=== PATIENT | female | born 1940 | race African-American/Black ===

== ENCOUNTER → 2016-12-11 | Outpatient (CLI) | payer MEDICARE | END | disposition home or self-care (01) | LOC: US 07:26 | PROVIDERS: ATTEND Internal Medicine Gastroenterology | DX: K76.0 Fatty (change of) liver, not elsewhere classified (principal); K74.60 Unspecified cirrhosis of liver; K82.9 Disease of gallbladder, unspecified; K83.8 Other specified diseases of biliary tract; K76.6 Portal hypertension; R16.2 Hepatomegaly with splenomegaly, not elsewhere classified | CPT/HCPCS: 76700 ==

== ENCOUNTER 2017-02-11 05:25 | Inpatient (IN) | payer MEDICARE ==
[~2017-02-11] VITALS: Ht 165.1 cm; Wt 68.0 kg
[2017-02-11] MEDS ORDERED: PANTOPRAZOLE SODIUM 40 MG/VIAL IV STA (06:19)
[2017-02-11] MEDS ORDERED: SODIUM CHLORIDE 0.9% 500 ML IV ONE (06:19)
[2017-02-11 06:43] LABS: CARBON DIOXIDE 29 mEq/L (21-32); CHLORIDE 106 mEq/L (98-107); TROPONIN I < 0.02 ng/mL (0.00-0.04)
[2017-02-11 07:15] LABS: BASOPHILS % 0.3 % (0.0-2.0); EOSINOPHILS % 0.1 % (0.0-5.0); HEMATOCRIT. 36.4 % (36.0-48.0); HEMOGLOBIN. 12.5 g/dL (12.0-16.0); LYMPHOCYTES % 13.9 % (20.0-50.0); MEAN CORPUSCULAR HEMOGLOBIN 32.4 pg (28.0-32.0); MEAN CORPUSCULAR VOLUME 94.1 fL (81.0-99.0); MEAN PLATELET VOLUME 8.5 fl (7.4-10.4); MONOCYTES % 7.6 % (2.0-8.0); NEUTROPHILS % 78.1 % (40.0-76.0); PLATELET 167 x1000/uL (130-400); RED BLOOD CELL COUNT 3.87 mill/uL (4.2-5.4); RED CELL DISTRIBUTION WIDTH 15.8 % (11.6-14.6)
[2017-02-11 07:18] LABS: INR 1.1; PARTIAL THROMBOPLASTIN TIME 26.6 sec (24.0-34.0); PROTHROMBIN TIME 11.7 sec
[2017-02-11 09:15] VITALS: BP 150/64
[2017-02-11] MEDS ORDERED: HYDRALAZINE 20MG/ML VIAL IV PRN (10:15)
[2017-02-11] MEDS ORDERED: CLONIDINE 0.1MG TABLET PO PRN (10:15)
[2017-02-11 10:53] VITALS: BP 150/64
[2017-02-11] MEDS ORDERED: AZULFIDINE (11:28)
[2017-02-11] MEDS ORDERED: METO50TA5 PO (11:28)
[2017-02-11] MEDS ORDERED: TRIA1TAB5 PO (11:28)
[2017-02-11 12:00] VITALS: BP 174/78
[2017-02-11] MEDS: AMLODIPINE 2.5MG TABLET PO SCH ×2 (12:34→21:57)
[2017-02-11 15:30] LABS: HEMATOCRIT 33.1 % (36.0-48.0); HEMOGLOBIN 11.1 g/dL (12.0-16.0)
[2017-02-11 16:00] VITALS: BP 133/65
[2017-02-11 20:00] VITALS: BP 140/70
[2017-02-11] MEDS: METOPROLOL TARTRATE 25MG TABLET PO SCH (21:56)
[2017-02-12 00:20] VITALS: BP 154/84
[2017-02-12 04:00] VITALS: BP 165/85
[2017-02-12 06:23] LABS: HEMATOCRIT. 33.5 % (36.0-48.0); HEMOGLOBIN. 11.3 g/dL (12.0-16.0); MEAN CORPUSCULAR HEMOGLOBIN 31.6 pg (28.0-32.0); MEAN CORPUSCULAR VOLUME 93.7 fL (81.0-99.0); MEAN PLATELET VOLUME 8.3 fl (7.4-10.4); PLATELET 118 x1000/uL (130-400); RED BLOOD CELL COUNT 3.57 mill/uL (4.2-5.4); RED CELL DISTRIBUTION WIDTH 15.2 % (11.6-14.6)
[2017-02-12 06:57] LABS: CHLORIDE 108 mEq/L (98-107)
[2017-02-12 07:01] LABS: CARBON DIOXIDE 28 mEq/L (21-32)
[2017-02-12 08:00] VITALS: BP 154/69
[2017-02-12] MEDS: AMLODIPINE 2.5MG TABLET PO SCH ×2 (08:57→22:32)
[2017-02-12] MEDS: METOPROLOL TARTRATE 25MG TABLET PO SCH ×2 (08:57→22:31)
[2017-02-12] MEDS ORDERED: MAGNESIUM 2 G PREMIX 50 ML IV SCH (11:00)
[2017-02-12 12:00] VITALS: BP 131/61
[2017-02-12 16:00] VITALS: BP 153/73
[2017-02-12 16:26] LABS: PLATELET ESTIMATE DECREASED
[2017-02-12] MEDS ORDERED: SORBITOL 70% SOLN 30ML PO SCH ×2 (18:00→22:00)
[2017-02-12 20:00] VITALS: BP 149/67
[2017-02-12] MEDS ORDERED: DEXT 5%/0.45% NACL 1000ML 1,000 ML IV ONE (22:21)
[2017-02-12] MEDS ORDERED: METOCLOPRAMIDE HCL 10MG/2ML VIAL IV NR (22:22)
[2017-02-12] MEDS ORDERED: POTASSIUM CHLORIDE 20MEQ/PACKET PO NR (22:23)
[2017-02-12] MEDS: PANTOPRAZOLE SODIUM 40 MG/VIAL IV SCH (22:31)
[2017-02-12] MEDS: DEXT 5%/0.45% NACL KCL 20MEQ/L 1,000 ML IV SCH (23:32)
[2017-02-13] VITALS: BP 143/62
[2017-02-13] MEDS ORDERED: METOCLOPRAMIDE HCL 10MG/2ML VIAL IV ONE (02:00)
[2017-02-13 04:00] VITALS: BP 139/68
[2017-02-13 04:18] LABS: BASOPHILS % 1.2 % (0.0-2.0); EOSINOPHILS % 0.4 % (0.0-5.0); HEMATOCRIT. 37.8 % (36.0-48.0); HEMOGLOBIN. 12.9 g/dL (12.0-16.0); LYMPHOCYTES % 9.6 % (20.0-50.0); MEAN CORPUSCULAR HEMOGLOBIN 32.2 pg (28.0-32.0); MEAN CORPUSCULAR VOLUME 94.1 fL (81.0-99.0); MEAN PLATELET VOLUME 8.7 fl (7.4-10.4); MONOCYTES % 11.8 % (2.0-8.0); PLATELET 140 x1000/uL (130-400); RED BLOOD CELL COUNT 4.02 mill/uL (4.2-5.4); RED CELL DISTRIBUTION WIDTH 15.6 % (11.6-14.6)
[2017-02-13 04:22] LABS: INR 1.1; PARTIAL THROMBOPLASTIN TIME 25.8 sec (24.0-34.0)
[2017-02-13 04:36] LABS: CARBON DIOXIDE 29 mEq/L (21-32); CHLORIDE 115 mEq/L (98-107)
[2017-02-13 08:00] VITALS: BP 131/71
[2017-02-13] MEDS: METOPROLOL TARTRATE 25MG TABLET PO SCH ×2 (09:00→20:35)
[2017-02-13] MEDS: AMLODIPINE 2.5MG TABLET PO SCH ×2 (09:00→20:36)
[2017-02-13] MEDS: PANTOPRAZOLE SODIUM 40 MG/VIAL IV SCH ×2 (09:47→20:35)
[2017-02-13] MEDS: DEXT 5%/0.45% NACL KCL 20MEQ/L 1,000 ML IV SCH (10:27)
[2017-02-13 12:00] VITALS: BP 152/61
[2017-02-13] MEDS ORDERED: SIMETHICONE 40 MG/0.6 ML 30ML ONE (12:51)
[2017-02-13] MEDS ORDERED: FENTANYL CITRATE/PF 50MCG/ML 2ML VIAL ONE (12:51)
[2017-02-13] MEDS ORDERED: MIDAZOLAM HCL 5 MG/5 ML VIAL ONE (12:52)
[2017-02-13] MEDS ORDERED: MIDAZOLAM HCL 5 MG/5 ML VIAL IV ONE (12:59)
[2017-02-13] MEDS ORDERED: FENTANYL CITRATE/PF 50MCG/ML 2ML VIAL IV ONE (13:01)
[2017-02-13] MEDS ORDERED: SODIUM CHLORIDE 0.9% 10ML VIAL ONE (13:35)
[2017-02-13 16:00] VITALS: BP 123/66
[2017-02-13 20:00] VITALS: BP 138/63
[2017-02-14] VITALS: BP 134/91
[2017-02-14] MEDS: DEXT 5%/0.45% NACL KCL 20MEQ/L 1,000 ML IV SCH ×2 (00:39→11:25)
[2017-02-14 04:00] VITALS: BP 143/61
[2017-02-14 06:27] LABS: BASOPHILS % 0.5 % (0.0-2.0); HEMATOCRIT. 33.5 % (36.0-48.0); HEMOGLOBIN. 11.5 g/dL (12.0-16.0); LYMPHOCYTES % 16.7 % (20.0-50.0); MEAN CORPUSCULAR HEMOGLOBIN 32.4 pg (28.0-32.0); MEAN CORPUSCULAR VOLUME 94.8 fL (81.0-99.0); MEAN PLATELET VOLUME 8.7 fl (7.4-10.4); MONOCYTES % 8.7 % (2.0-8.0); NEUTROPHILS % 72.1 % (40.0-76.0); RED BLOOD CELL COUNT 3.54 mill/uL (4.2-5.4); RED CELL DISTRIBUTION WIDTH 15.7 % (11.6-14.6)
[2017-02-14 06:37] LABS: CARBON DIOXIDE 27 mEq/L (21-32); CHLORIDE 110 mEq/L (98-107)
[2017-02-14 06:38] LABS: PLATELET 106 x1000/uL (130-400)
[2017-02-14 08:00] VITALS: BP 143/67
[2017-02-14] MEDS: PANTOPRAZOLE SODIUM 40 MG/VIAL IV SCH (09:53)
[2017-02-14] MEDS: METOPROLOL TARTRATE 25MG TABLET PO SCH (09:54)
[2017-02-14] MEDS: AMLODIPINE 2.5MG TABLET PO SCH (09:54)
[2017-02-14] MEDS ORDERED: LORAZEPAM 2MG/ML CPJ IV SCH (11:15)
[2017-02-14 12:00] VITALS: BP 131/62
[2017-02-14] MEDS ORDERED: GADOBENATE DIMEGLUMINE 529 MG/ML 10ML IV ONE (14:01)
[2017-02-14 16:00] VITALS: BP 138/71
[2017-02-14 19:50] VITALS: BP 130/64
== END 2017-02-14 19:59 | disposition home or self-care (01) | DRG 378 ==
LOC: ER 05:25 → 5WST 08:00 → EDBEDREQTM 08:04 → EDBEDREQSVC 08:04 → EDBEDREQ 08:04 → ENRESERV 08:26
PROVIDERS: ADMIT Specialist; ATTEND Specialist
PROC: 0DJD8ZZ Inspection of Lower Intestinal Tract, Via Natural or Artificial Opening Endoscopic (ICD-10-PCS; 2017-02-13)
PROC: 0DB68ZX Excision of Stomach, Via Natural or Artificial Opening Endoscopic, Diagnostic (ICD-10-PCS; principal; 2017-02-13 11:00)
DX: K62.5 Hemorrhage of anus and rectum (principal); I47.1 Supraventricular tachycardia; J98.11 Atelectasis; K50.90 Crohn's disease, unspecified, without complications; I85.00 Esophageal varices without bleeding; K92.2 Gastrointestinal hemorrhage, unspecified; D63.8 Anemia in other chronic diseases classified elsewhere; E83.42 Hypomagnesemia; I11.0 Hypertensive heart disease with heart failure; I50.9 Heart failure, unspecified; I34.0 Nonrheumatic mitral (valve) insufficiency; I87.2 Venous insufficiency (chronic) (peripheral); K29.70 Gastritis, unspecified, without bleeding; R26.81 Unsteadiness on feet; R16.2 Hepatomegaly with splenomegaly, not elsewhere classified; D49.89 Neoplasm of unspecified behavior of other specified sites; K31.89 Other diseases of stomach and duodenum; K44.9 Diaphragmatic hernia without obstruction or gangrene; K76.0 Fatty (change of) liver, not elsewhere classified; Z85.828 Personal history of other malignant neoplasm of skin
CPT/HCPCS: 36415; 71010; 72157; 80048; 80053; 83690; 83735; 83880; 84443; 84484; 85014; 85018; 85025; 85610; 85730; 86850; 86900; 88305; 88312; 88313; 93005; 96365; 96366; 97162; 97530; 99285; A4216; A6261; A9577; C9113; J2060; J2250; J2765; J3010; J3475; J7040; J7050

== ENCOUNTER 2017-03-07 18:15 | Inpatient (IN) | payer MEDICARE ==
[~2017-03-07] VITALS: Ht 165.1 cm; Wt 67.6 kg
[~2017-03-07 18:15] MED LIST: AZAT50TA24 PO; AZULFIDINE PO; METO50TA5 PO; TRIA1TAB5 PO
[2017-03-07 18:30] VITALS: BP 160/70
[2017-03-07] MEDS ORDERED: HYDROCODONE/APAP 7.5/325MG 1 TAB TABLET PO PRN (19:45)
[2017-03-07] MEDS ORDERED: NALOXONE HCL 0.4 MG/ML 1ML VIAL IV PRN (19:45)
[2017-03-07] MEDS ORDERED: ACETAMINOPHEN 325MG TABLET PO PRN (19:45)
[2017-03-07] MEDS ORDERED: ACETAMINOPHEN 650MG SUPP PR PRN (19:45)
[2017-03-07] MEDS ORDERED: DIPHENHYDRAMINE 50MG/ML VIAL IV PRN (19:45)
[2017-03-07] MEDS ORDERED: BISACODYL 5MG TABLET PO PRN (19:45)
[2017-03-07] MEDS ORDERED: CLONIDINE 0.1MG TABLET PO PRN (19:45)
[2017-03-07] MEDS ORDERED: ONDANSETRON HCL 4MG/2ML VIAL IV PRN (19:45)
[2017-03-07] MEDS ORDERED: IPRATROPIUM/ALBUTEROL 0.5-3(2.5)MG/3ML NEB HHN PRN (19:45)
[2017-03-07 20:00] VITALS: BP 144/70
[2017-03-07 20:30] VITALS: BP 144/70
[2017-03-07] MEDS: METOPROLOL TARTRATE 50MG TABLET PO SCH (21:00)
[2017-03-07] MEDS: LEVOFLOXACIN 250MG TABLET PO SCH (22:54)
[2017-03-07] MEDS: DEXAMETHASONE 4MG/ML 1ML VIAL IV SCH (23:09)
[2017-03-08] MEDS: DEXAMETHASONE 4MG/ML 1ML VIAL IV SCH ×3 (05:09→17:12)
[2017-03-08 08:00] VITALS: BP 153/83
[2017-03-08] MEDS: LEVOFLOXACIN 250MG TABLET PO SCH (08:23)
[2017-03-08] MEDS: DOCUSATE SODIUM 250MG CAPSULE PO SCH (08:24)
[2017-03-08] MEDS: FAMOTIDINE 20MG/2ML VIAL IV SCH (08:24)
[2017-03-08] MEDS: METOPROLOL TARTRATE 50MG TABLET PO SCH ×2 (08:24→21:27)
[2017-03-08 10:48] LABS: HEMATOCRIT. 36.9 % (36.0-48.0); HEMOGLOBIN. 12.4 g/dL (12.0-16.0); MEAN CORPUSCULAR HEMOGLOBIN 31.2 pg (28.0-32.0); MEAN CORPUSCULAR VOLUME 93.1 fL (81.0-99.0); MEAN PLATELET VOLUME 8.2 fl (7.4-10.4); PLATELET 159 x1000/uL (130-400); RED BLOOD CELL COUNT 3.96 mill/uL (4.2-5.4); RED CELL DISTRIBUTION WIDTH 16.2 % (11.6-14.6)
[2017-03-08 11:20] LABS: CARBON DIOXIDE 27 mEq/L (21-32); CHLORIDE 103 mEq/L (98-107)
[2017-03-08 11:30] LABS: PLATELET ESTIMATE NORMAL
[2017-03-08 20:00] VITALS: BP 187/79
[2017-03-09] MEDS: DEXAMETHASONE 4MG/ML 1ML VIAL IV SCH ×3 (06:51→11:49)
[2017-03-09 08:00] VITALS: BP 134/64
[2017-03-09 09:10] VITALS: BP 140/86
[2017-03-09] MEDS: LEVOFLOXACIN 250MG TABLET PO SCH (09:13)
[2017-03-09] MEDS: FAMOTIDINE 20MG/2ML VIAL IV SCH (09:18)
[2017-03-09] MEDS: METOPROLOL TARTRATE 50MG TABLET PO SCH ×2 (09:18→21:06)
[2017-03-09] MEDS: DOCUSATE SODIUM 250MG CAPSULE PO SCH (09:18)
[2017-03-09] MEDS: FAMOTIDINE 20MG TABLET PO SCH (17:00)
[2017-03-09 20:00] VITALS: BP 141/90
[2017-03-09] MEDS ORDERED: FAMOTIDINE 20MG TABLET PO SCH (21:00)
[2017-03-09] MEDS: DEXAMETHASONE 4MG TABLET PO SCH (21:05)
[2017-03-10 08:00] VITALS: BP 128/87
[2017-03-10] MEDS: DOCUSATE SODIUM 250MG CAPSULE PO SCH (08:46)
[2017-03-10] MEDS: LEVOFLOXACIN 250MG TABLET PO SCH (08:46)
[2017-03-10] MEDS: METOPROLOL TARTRATE 50MG TABLET PO SCH (08:47)
[2017-03-10] MEDS: FAMOTIDINE 20MG TABLET PO SCH (08:47)
[2017-03-10] MEDS: DEXAMETHASONE 4MG TABLET PO SCH (08:47)
[2017-03-10 09:54] LABS: HEMATOCRIT. 38.1 % (36.0-48.0); HEMOGLOBIN. 12.8 g/dL (12.0-16.0); MEAN CORPUSCULAR VOLUME 92.3 fL (81.0-99.0); MEAN PLATELET VOLUME 8.5 fl (7.4-10.4); PLATELET 204 x1000/uL (130-400); RED BLOOD CELL COUNT 4.13 mill/uL (4.2-5.4); RED CELL DISTRIBUTION WIDTH 15.6 % (11.6-14.6)
[2017-03-10 09:59] LABS: INR 1.3; PROTHROMBIN TIME 13.6 sec
[2017-03-10 10:04] LABS: CARBON DIOXIDE 26 mEq/L (21-32); CHLORIDE 104 mEq/L (98-107)
[2017-03-10 10:41] LABS: PLATELET ESTIMATE NORMAL
[2017-03-10 11:01] LABS: BG BASE EXCESS 3.4 mmol/L (-2.0-2.0); BG CARBOXYHEMOGLOBIN 0.9 % (0.5-1.5); BG DEOXYHEMOGLOBIN 4.3 % (0.0-5.0); BG FRACTION INSPIRED OXYGEN 21; BG HCO3 ACT 25.2 mmol/L (22.0-26.0); BG METHEMOGLOBIN 0.3 % (0.0-1.5); BG OXYGEN SATURATION 95.6 % (92.0-98.5); BG OXYHEMOGLOBIN 94.5 % (94.0-97.0); BG PCO2 29.6 mmHg (35.0-45.0); BG PH 7.548 (7.350-7.450); BG PO2 81.5 mmHg (75.0-100.0); BG SAMPLE SITE RIGHT BRACHIAL; BG TOTAL HEMOGLOBIN 12.4 g/dL (12.0-18.0); BG VENT MODE ROOM AIR
[2017-03-10] MEDS ORDERED: BLOOD SUGAR DIAGNOSTIC STRIP TEST SCH ×2 (11:15)
[2017-03-11 07:29] LABS: BG BASE EXCESS 2.7 mmol/L (-2.0-2.0); BG CARBOXYHEMOGLOBIN 1.2 % (0.5-1.5); BG DEOXYHEMOGLOBIN 4.7 % (0.0-5.0); BG HCO3 ACT 24.3 mmol/L (22.0-26.0); BG METHEMOGLOBIN 0.3 % (0.0-1.5); BG OXYGEN SATURATION 95.2 % (92.0-98.5); BG OXYHEMOGLOBIN 93.8 % (94.0-97.0); BG PCO2 28.8 mmHg (35.0-45.0); BG PH 7.544 (7.350-7.450); BG SAMPLE SITE RIGHT BRACHIAL; BG TOTAL HEMOGLOBIN 12.9 g/dL (12.0-18.0); BG VENT MODE ROOM AIR
[2017-03-12 08:49] LABS: BG BASE EXCESS 3.4 mmol/L (-2.0-2.0); BG CARBOXYHEMOGLOBIN 1.2 % (0.5-1.5); BG DEOXYHEMOGLOBIN 4.3 % (0.0-5.0); BG FRACTION INSPIRED OXYGEN 21; BG HCO3 ACT 24.4 mmol/L (22.0-26.0); BG METHEMOGLOBIN 0.3 % (0.0-1.5); BG OXYGEN SATURATION 95.6 % (92.0-98.5); BG OXYHEMOGLOBIN 94.2 % (94.0-97.0); BG PCO2 26.8 mmHg (35.0-45.0); BG PH 7.577 (7.350-7.450); BG SAMPLE SITE LEFT RADIAL; BG TOTAL HEMOGLOBIN 12.6 g/dL (12.0-18.0); BG VENT MODE ROOM AIR
== END 2017-03-10 09:40 | disposition short-term general hospital (02) | DRG 542 ==
PROVIDERS: ADMIT Psychiatry & Neurology Neurology; ATTEND Hospitalist
DX: C41.2 Malignant neoplasm of vertebral column (principal); G93.40 Encephalopathy, unspecified; I63.9 Cerebral infarction, unspecified; J18.9 Pneumonia, unspecified organism; G95.89 Other specified diseases of spinal cord; I48.91 Unspecified atrial fibrillation; I11.9 Hypertensive heart disease without heart failure; G82.20 Paraplegia, unspecified; K50.90 Crohn's disease, unspecified, without complications; N39.0 Urinary tract infection, site not specified; N32.81 Overactive bladder; I89.0 Lymphedema, not elsewhere classified; I87.2 Venous insufficiency (chronic) (peripheral); I34.0 Nonrheumatic mitral (valve) insufficiency; R26.89 Other abnormalities of gait and mobility; Z87.891 Personal history of nicotine dependence; Z87.440 Personal history of urinary (tract) infections; Z85.828 Personal history of other malignant neoplasm of skin
CPT/HCPCS: 36415; 36600; 70450; 70551; 80048; 82375; 82805; 82962; 85025; 85384; 85610; 93005; 93970; 97116; 97163; 97167; 97530; 97535; J1100; J3490; J8540

== ENCOUNTER 2017-03-13 20:00 | Inpatient (IN) | payer MEDICARE ==
[~2017-03-13] VITALS: Ht 165.1 cm; Wt 67.6 kg
[2017-03-13 20:45] VITALS: BP 134/62
[2017-03-13] MEDS ORDERED: ACETAMINOPHEN 325MG TABLET PO PRN (21:15)
[2017-03-13] MEDS ORDERED: IPRATROPIUM/ALBUTEROL 0.5-3(2.5)MG/3ML NEB HHN PRN (21:15)
[2017-03-13] MEDS: METOPROLOL TARTRATE 25MG TABLET PO SCH (21:58)
[2017-03-13] MEDS ORDERED: DILTIAZEM HCL 90MG TABLET PO SCH (22:00)
[2017-03-13] MEDS: TAMSULOSIN HCL 0.4MG SR CAPSULE PO SCH (22:13)
[2017-03-13] MEDS: ATORVASTATIN CALCIUM 10MG TABLET PO SCH (22:14)
[2017-03-13] MEDS: DILTIAZEM HCL 60MG TABLET PO SCH ×2 (23:00→23:38)
[2017-03-14] MEDS: IPRATROPIUM/ALBUTEROL 0.5-3(2.5)MG/3ML NEB HHN SCH ×4 (02:20→21:35)
[2017-03-14] MEDS: DILTIAZEM HCL 60MG TABLET PO SCH ×3 (05:53→22:17)
[2017-03-14 08:00] VITALS: BP 96/49
[2017-03-14] MEDS: METOPROLOL TARTRATE 25MG TABLET PO SCH ×2 (08:04→21:00)
[2017-03-14] MEDS ORDERED: ASPIRIN 81MG TABLET PO SCH (09:00)
[2017-03-14] MEDS ORDERED: CLOPIDOGREL 75MG TABLET PO SCH (09:00)
[2017-03-14] MEDS ORDERED: LEVOFLOXACIN 250MG TABLET PO SCH (11:00)
[2017-03-14 15:59] LABS: INR 1.3; PROTHROMBIN TIME 14.1 sec (9.4-11.6)
[2017-03-14] MEDS ORDERED: WARFARIN SODIUM 5MG TABLET PO SCH (18:00)
[2017-03-14 20:00] VITALS: BP 117/60
[2017-03-14] MEDS: ATORVASTATIN CALCIUM 10MG TABLET PO SCH (22:13)
[2017-03-14] MEDS: TAMSULOSIN HCL 0.4MG SR CAPSULE PO SCH (22:15)
[2017-03-15] MEDS: IPRATROPIUM/ALBUTEROL 0.5-3(2.5)MG/3ML NEB HHN SCH (02:15)
[2017-03-15 06:05] LABS: INR 1.3; PROTHROMBIN TIME 13.4 sec (9.4-11.6)
== END 2017-03-15 08:10 | disposition short-term general hospital (02) | DRG 65 ==
PROVIDERS: ADMIT Psychiatry & Neurology Neurology; ATTEND Hospitalist
DX: I63.412 Cerebral infarction due to embolism of left middle cerebral artery (principal); N39.0 Urinary tract infection, site not specified; K50.90 Crohn's disease, unspecified, without complications; I48.91 Unspecified atrial fibrillation; G95.9 Disease of spinal cord, unspecified; I47.1 Supraventricular tachycardia; I10 Essential (primary) hypertension; D49.2 Neoplasm of unspecified behavior of bone, soft tissue, and skin; N31.9 Neuromuscular dysfunction of bladder, unspecified; R33.9 Retention of urine, unspecified; E78.5 Hyperlipidemia, unspecified; I34.0 Nonrheumatic mitral (valve) insufficiency; I89.0 Lymphedema, not elsewhere classified; I87.2 Venous insufficiency (chronic) (peripheral); R26.0 Ataxic gait; Z87.891 Personal history of nicotine dependence; Z79.899 Other long term (current) drug therapy
CPT/HCPCS: 36415; 85610; 92523; 93005; 94640; 97116; 97163; 97167; 97530; 97535; J7620

== ENCOUNTER → 2019-03-30 | Outpatient (CLI) | payer MEDICARE ==
[~2019-03-30] MED LIST changes: +ASCO500C6 PO; +BISA-81 PO; +CLON0.1T PO; +DEXTL PO; +GENT30OI2 TP; +HYDR-4001 PO; +LACT10SO6 PO; +METO-539 PO; -METO50TA5 PO; +NA P230E RC; +POLY15DR31 EACHEYE; +SOTA80TA PO
== END | disposition home or self-care (01) ==
LOC: US 08:20
PROVIDERS: ATTEND Internal Medicine Gastroenterology
DX: K80.20 Calculus of gallbladder without cholecystitis without obstruction (principal); K74.60 Unspecified cirrhosis of liver; R16.1 Splenomegaly, not elsewhere classified; J90 Pleural effusion, not elsewhere classified
CPT/HCPCS: 76700

== ENCOUNTER 2021-08-28 16:03 | Inpatient (IN) | payer MEDICARE ==
[~2021-08-28] VITALS: Ht 162.6 cm; Wt 69.9 kg
[2021-08-28] MEDS ORDERED: SODIUM CHLORIDE 0.9% 1000ML BAG (SEPSIS BOLUS) IV ONE (16:30)
[2021-08-28 17:01] LABS: BG BASE EXCESS 3.2 mmol/L (-2.0-2.0); BG DEOXYHEMOGLOBIN 5.3 % (0.0-5.0); BG HCO3 ACT 26.3 mmol/L (22.0-26.0); BG METHEMOGLOBIN 0.2 % (0.0-1.5); BG OXYGEN SATURATION 94.6 % (92.0-98.5); BG OXYHEMOGLOBIN 93.5 % (94.0-97.0); BG PCO2 35.1 mmHg (35.0-45.0); BG PH 7.493 (7.350-7.450); BG PO2 86.2 mmHg (75.0-100.0); BG SAMPLE SITE LEFT BRACHIAL; BG TOTAL HEMOGLOBIN 11.6 g/dL (12.0-18.0); BG VENT MODE ROOM AIR
[2021-08-28] MEDS ORDERED: POTASSIUM CL ER (17:03)
[2021-08-28] MEDS ORDERED: FERROUS SULFATE (17:03)
[2021-08-28] MEDS ORDERED: PREDNISONE (17:03)
[2021-08-28] MEDS ORDERED: D3 (17:03)
[2021-08-28] MEDS ORDERED: APIX2.5T PO (17:03)
[2021-08-28] MEDS ORDERED: SULF500T8 PO (17:03)
[2021-08-28] MEDS ORDERED: FURO40TA5 PO (17:03)
[2021-08-28] MEDS ORDERED: DIPH1TAB24 PO (17:03)
[2021-08-28] MEDS ORDERED: PRESER VISION (17:03)
[2021-08-28 17:13] LABS: BASOPHILS % 0.8 % (0.0-2.0); EOSINOPHILS % 0.2 % (0.0-5.0); HEMATOCRIT. 38.5 % (36.0-48.0); HEMOGLOBIN. 12.2 g/dL (12.0-16.0); LYMPHOCYTES % 16.8 % (20.0-50.0); MEAN CORPUSCULAR VOLUME 94.2 fL (81.0-99.0); MEAN PLATELET VOLUME 9.6 fl (7.4-10.4); MONOCYTES % 10.3 % (2.0-8.0); NEUTROPHILS % 71.9 % (40.0-76.0); PLATELET 212 x1000/uL (130-400); RED BLOOD CELL COUNT 4.08 mill/uL (4.2-5.4)
[2021-08-28 17:15] LABS: CHLORIDE 111 mEq/L (98-107)
[2021-08-28 17:18] LABS: ETHANOL BLOOD < 10 mg/dL
[2021-08-28 17:23] LABS: CREATINE KINASE 79 IU/L (26-192)
[2021-08-28] MEDS ORDERED: CEFAZOLIN 1000MG PREMIX 50 ML IV NR (18:30)
[2021-08-28] MEDS ORDERED: METRONIDAZOLE 500 MG PREMIX 100 ML IV NR (18:30)
[2021-08-28 20:05] LABS: CLARITY URINE TURBID (CLEAR); COLOR URINE DARK YELLOW (YELLOW); KETONES URINE NEGATIVE (NEGATIVE); LEUKOCYTE ESTERASE URINE 3+ (NEGATIVE); NITRITE URINE NEGATIVE (NEGATIVE); OCCULT BLOOD URINE 1+ (NEGATIVE); PH URINE 8.5 (4.5-8.0); PROTEIN URINE 2+ (NEGATIVE); SPECIFIC GRAVITY URINE 1.017 (1.005-1.030)
[2021-08-28 20:24] LABS: *COCAINE SCREEN URINE NEGATIVE (NEGATIVE)
[2021-08-28 20:26] LABS: *BARBITURATES SCREEN URINE NEGATIVE (NEGATIVE); *BENZODIAZEPINES SCREEN URINE NEGATIVE (NEGATIVE); CANNABINOID URINE SCREEN NEGATIVE (NEGATIVE); METHADONE URINE SCREEN NEGATIVE (NEGATIVE); OPIATES URINE SCREEN NEGATIVE (NEGATIVE); PHENCYCLIDINE URINE SCREEN NEGATIVE (NEGATIVE)
[2021-08-28 20:28] LABS: *AMPHETAMINES SCREEN URINE NEGATIVE (NEGATIVE)
[2021-08-28] MEDS ORDERED: ACETAMINOPHEN 325MG TABLET PO PRN (21:00)
[2021-08-28] MEDS ORDERED: DIPHENHYDRAMINE 50MG/ML VIAL IV PRN (21:00)
[2021-08-28] MEDS ORDERED: ONDANSETRON HCL 4MG/2ML INJ IV PRN (21:00)
[2021-08-28] MEDS ORDERED: LEVOFLOXACIN 500MG PREMIX 100 ML IV SCH (21:30)
[2021-08-28] MEDS: DILTIAZEM HCL 30MG TABLET PO SCH (22:11)
[2021-08-28] MEDS: LACTULOSE 20G/30ML UDC PO SCH (22:13)
[2021-08-28] MEDS: SODIUM CHLORIDE 0.9% INJ 3ML FLUSH IVF SCH (22:13)
[2021-08-29] VITALS: BP 158/71
[2021-08-29] MEDS ORDERED: HYDRALAZINE 20MG/ML VIAL IV PRN (03:00)
[2021-08-29 04:00] VITALS: BP 175/73
[2021-08-29] MEDS: DILTIAZEM HCL 30MG TABLET PO SCH ×3 (05:01→21:14)
[2021-08-29] MEDS: LACTULOSE 20G/30ML UDC PO SCH ×3 (05:01→21:14)
[2021-08-29] MEDS: SODIUM CHLORIDE 0.9% INJ 3ML FLUSH IVF SCH ×3 (05:01→21:14)
[2021-08-29 08:19] LABS: EOSINOPHILS % 0.2 % (0.0-5.0); HEMATOCRIT. 34.1 % (36.0-48.0); HEMOGLOBIN. 11.3 g/dL (12.0-16.0); LYMPHOCYTES % 11.8 % (20.0-50.0); MEAN CORPUSCULAR HEMOGLOBIN 31.1 pg (28.0-32.0); MEAN CORPUSCULAR VOLUME 94.1 fL (81.0-99.0); MEAN PLATELET VOLUME 9.5 fl (7.4-10.4); MONOCYTES % 7.6 % (2.0-8.0); NEUTROPHILS % 79.4 % (40.0-76.0); PLATELET 165 x1000/uL (130-400); RED BLOOD CELL COUNT 3.63 mill/uL (4.2-5.4); RED CELL DISTRIBUTION WIDTH 18.4 % (11.6-14.6)
[2021-08-29 08:20] LABS: CHLORIDE 114 mEq/L (98-107)
[2021-08-29 08:30] VITALS: BP 156/74
[2021-08-29 12:00] VITALS: BP 171/76
[2021-08-29 16:00] VITALS: BP 154/87
[2021-08-29] MEDS ORDERED: POTASSIUM CHLORIDE 20MEQ TABLET SR PO NR (17:00)
[2021-08-29] MEDS ORDERED: METRONIDAZOLE 500 MG PREMIX 100 ML IV SCH (18:30)
[2021-08-29 20:00] VITALS: BP 136/86
[2021-08-29] MEDS: METRONIDAZOLE 500 MG PREMIX 100 ML IV SCH (21:14)
[2021-08-30] VITALS: BP 118/65
[2021-08-30] MEDS: ACETAMINOPHEN 325MG TABLET PO PRN ×2 (01:24→21:33)
[2021-08-30] MEDS: METRONIDAZOLE 500 MG PREMIX 100 ML IV SCH ×3 (01:24→18:16)
[2021-08-30 04:00] VITALS: BP 135/61
[2021-08-30] MEDS: DILTIAZEM HCL 30MG TABLET PO SCH ×3 (06:40→21:34)
[2021-08-30] MEDS: LACTULOSE 20G/30ML UDC PO SCH ×3 (06:40→21:33)
[2021-08-30] MEDS: SODIUM CHLORIDE 0.9% INJ 3ML FLUSH IVF SCH ×3 (06:40→21:34)
[2021-08-30 08:15] VITALS: BP 130/62
[2021-08-30 12:15] VITALS: BP 116/50
[2021-08-30 16:30] VITALS: BP 110/60
[2021-08-30 20:00] VITALS: BP 132/99
[2021-08-30] MEDS ORDERED: LEVOFLOXACIN 500MG PREMIX 100 ML IV SCH (22:00)
[2021-08-31] VITALS: BP 117/60
[2021-08-31] MEDS: METRONIDAZOLE 500 MG PREMIX 100 ML IV SCH ×3 (01:25→17:38)
[2021-08-31 04:00] VITALS: BP 137/63
[2021-08-31] MEDS: DILTIAZEM HCL 30MG TABLET PO SCH ×2 (06:16→13:08)
[2021-08-31] MEDS: LACTULOSE 20G/30ML UDC PO SCH (06:17)
[2021-08-31] MEDS: SODIUM CHLORIDE 0.9% INJ 3ML FLUSH IVF SCH ×2 (06:17→13:06)
[2021-08-31 08:00] VITALS: BP 132/71
[2021-08-31 09:33] LABS: BASOPHILS % 0.9 % (0.0-2.0); EOSINOPHILS % 0.2 % (0.0-5.0); HEMATOCRIT. 38.7 % (36.0-48.0); HEMOGLOBIN. 12.6 g/dL (12.0-16.0); LYMPHOCYTES % 14.8 % (20.0-50.0); MEAN CORPUSCULAR HEMOGLOBIN 30.5 pg (28.0-32.0); MEAN CORPUSCULAR VOLUME 93.9 fL (81.0-99.0); MEAN PLATELET VOLUME 9.7 fl (7.4-10.4); MONOCYTES % 11.1 % (2.0-8.0); PLATELET 146 x1000/uL (130-400); RED BLOOD CELL COUNT 4.12 mill/uL (4.2-5.4)
[2021-08-31 09:39] LABS: CHLORIDE 116 mEq/L (98-107)
[2021-08-31] MEDS ORDERED: POTASSIUM CHLORIDE 20MEQ TABLET SR PO SCH (10:30)
[2021-08-31 12:00] VITALS: BP 133/67
[2021-08-31] MEDS ORDERED: METHYLPREDNISOLONE SOD SUCC 40 MG/ML VIAL IV SCH (12:33)
[2021-08-31] MEDS: RIFAXIMIN 550 MG TABLET PO SCH ×2 (13:06→17:37)
[2021-08-31 16:00] VITALS: BP 139/63
[2021-08-31] MEDS: MESALAMINE 400 MG CAPSULE.DR PO SCH ×2 (17:00→17:37)
[2021-08-31 18:00] VITALS: BP 139/63
[2021-09-01 04:07] LABS: OVA & PARASITE EXAM Final report (.)
[2021-09-02 15:09] LABS: ANTI-MYELOPEROXIDASE AB < 9.0 U/mL (0.0-9.0); ANTI-PROTEINASE 3 ABS < 3.5 U/mL (0.0-3.5)
[2021-09-04 04:07] LABS: OVA & PARASITE EXAM Final report (.)
[2021-09-05 13:11] LABS: ATYPICAL P-ANCA <1:20 titer (Neg:<1:20); CYTOPLASMIC C-ANCA <1:20 titer (Neg:<1:20); PERINUCLEAR P-ANCA <1:20 titer (Neg:<1:20)
== END 2021-08-31 18:51 | disposition home or self-care (01) | DRG 442 ==
LOC: ER 16:03 → 6WST 20:03 → EDBEDREQTM 20:42 → EDBEDREQ 20:42 → EDBEDREQSVC 20:42 → ENRESERV 21:56
PROVIDERS: ADMIT Internal Medicine; ATTEND Internal Medicine
DX: K72.90 Hepatic failure, unspecified without coma (principal); F05 Delirium due to known physiological condition; K50.10 Crohn's disease of large intestine without complications; N39.0 Urinary tract infection, site not specified; K74.60 Unspecified cirrhosis of liver; K52.89 Other specified noninfective gastroenteritis and colitis; I48.0 Paroxysmal atrial fibrillation; I25.10 Atherosclerotic heart disease of native coronary artery without angina pectoris; Z20.822 Contact with and (suspected) exposure to COVID-19; D64.9 Anemia, unspecified; I10 Essential (primary) hypertension; K59.00 Constipation, unspecified; Z86.73 Personal history of transient ischemic attack (TIA), and cerebral infarction without residual deficits; Z87.440 Personal history of urinary (tract) infections; Z82.49 Family history of ischemic heart disease and other diseases of the circulatory system
CPT/HCPCS: 36415; 36600; 71045; 74176; 76700; 80048; 80053; 80076; 80305; 80320; 81003; 82105; 82140; 82375; 82378; 82550; 82805; 82962; 83520; 83605; 83880; 84145; 84443; 84484; 85025; 85651; 86140; 86256; 86850; 86900; 87015; 87045; 87077; 87177; 87186; 87209; 87426; 87427; 87449; 87493; 89055; 93005; 93976; 99285; J0360; J0690; J1956; J2920; J3490; J7030; J7040; G0480

== ENCOUNTER 2022-01-24 08:26 | Inpatient (IN) | payer MEDICARE ==
[~2022-01-24] VITALS: Ht 165.1 cm; Wt 79.8 kg
[~2022-01-24 08:26] MED LIST changes: +APIX2.5T PO; -ASCO500C6 PO; -AZULFIDINE PO; -CLON0.1T PO; -DEXTL PO; +DIPH1TAB24 PO; +FURO40TA5 PO; -HYDR-4001 PO; -LACT10SO6 PO; -METO-539 PO; +SULF500T8 PO; -TRIA1TAB5 PO
[2022-01-24] MEDS ORDERED: ONDANSETRON HCL 4MG/2ML INJ IV STA (09:30)
[2022-01-24] MEDS ORDERED: MORPHINE SULFATE 4 MG/ML CPJ (NOT FOR IM USE) IV STA (09:30)
[2022-01-24 10:24] LABS: BASOPHILS % 0.5 % (0.0-2.0); EOSINOPHILS % 0.4 % (0.0-5.0); HEMATOCRIT. 30.9 % (36.0-48.0); HEMOGLOBIN. 9.7 g/dL (12.0-16.0); LYMPHOCYTES % 9.2 % (20.0-50.0); MEAN CORPUSCULAR HEMOGLOBIN 27.6 pg (28.0-32.0); MEAN CORPUSCULAR VOLUME 87.9 fL (81.0-99.0); MEAN PLATELET VOLUME 8.7 fl (7.4-10.4); MONOCYTES % 6.5 % (2.0-8.0); NEUTROPHILS % 83.4 % (40.0-76.0); PLATELET 168 x1000/uL (130-400); RED BLOOD CELL COUNT 3.52 mill/uL (4.2-5.4); RED CELL DISTRIBUTION WIDTH 21.9 % (11.6-14.6)
[2022-01-24 10:36] LABS: CHLORIDE 106 mEq/L (98-107)
[2022-01-24 10:40] LABS: INR 1.2; PROTHROMBIN TIME 12.5 sec (9.6-11.0)
[2022-01-24] MEDS ORDERED: POTASSIUM CHLORIDE 20MEQ TABLET SR PO NR (11:15)
[2022-01-24] MEDS ORDERED: NALOXONE HCL 0.4MG/ML VIAL IV PRN (13:30)
[2022-01-24] MEDS ORDERED: MORPHINE SULFATE 2 MG/ML CPJ (NOT FOR IM USE) IV PRN (13:30)
[2022-01-24] MEDS ORDERED: ACETAMINOPHEN 325MG TABLET PO PRN ×3 (14:30→20:45)
[2022-01-24 16:00] VITALS: BP 159/89
[2022-01-24] MEDS: SODIUM CHLORIDE 0.45% 1,000 ML IV SCH (17:58)
[2022-01-24] MEDS: SOTALOL HCL 80MG TABLET PO SCH ×2 (18:13→20:18)
[2022-01-24 20:00] VITALS: BP 159/60
[2022-01-24] MEDS ORDERED: ZOLPIDEM TARTRATE 5MG TABLET PO PRN (20:45)
[2022-01-24] MEDS ORDERED: ONDANSETRON HCL 4MG/2ML INJ IV PRN (20:45)
[2022-01-24] MEDS ORDERED: MAGNESIUM/ALUMINUM HYDROXIDE/SIMETHICONE 30ML UDC PO PRN (20:45)
[2022-01-24] MEDS ORDERED: CLONIDINE 0.1MG TABLET PO PRN (20:45)
[2022-01-24] MEDS: DEXT 5%/0.45% NACL 1000ML 1,000 ML IV SCH (21:14)
[2022-01-25] VITALS: BP 155/75
[2022-01-25] MEDS: SODIUM CHLORIDE 0.45% 1,000 ML IV SCH ×3 (01:35→22:24)
[2022-01-25 04:00] VITALS: BP 158/75
[2022-01-25 08:00] VITALS: BP 148/76
[2022-01-25 08:20] LABS: INR 1.2; PARTIAL THROMBOPLASTIN TIME 32.5 sec (23.4-31.0); PROTHROMBIN TIME 13.2 sec (9.6-11.0)
[2022-01-25 09:08] LABS: CHLORIDE 106 mEq/L (98-107)
[2022-01-25] MEDS ORDERED: ENOXAPARIN 40MG/0.4ML SYR SUBCUT NR (10:30)
[2022-01-25] MEDS: AMLODIPINE 5MG TABLET PO SCH ×2 (10:41→22:24)
[2022-01-25] MEDS: SOTALOL HCL 80MG TABLET PO SCH ×2 (10:41→22:24)
[2022-01-25] MEDS: MAGNESIUM OXIDE 400MG TABLET PO SCH (10:45)
[2022-01-25 12:00] VITALS: BP 152/71
[2022-01-25] MEDS ORDERED: KCL 20MEQ/100ML PREMIX 100 ML IV NR ×2 (12:00→21:00)
[2022-01-25] MEDS ORDERED: MAGNESIUM 2 G PREMIX 50 ML IV NR (12:00)
[2022-01-25 12:45] LABS: BASOPHILS % 0.7 % (0.0-2.0); EOSINOPHILS % 0.6 % (0.0-5.0); HEMATOCRIT. 28.3 % (36.0-48.0); HEMOGLOBIN. 8.6 g/dL (12.0-16.0); LYMPHOCYTES % 10.9 % (20.0-50.0); MEAN CORPUSCULAR HEMOGLOBIN 27.3 pg (28.0-32.0); MEAN CORPUSCULAR VOLUME 90.4 fL (81.0-99.0); MEAN PLATELET VOLUME 9.3 fl (7.4-10.4); NEUTROPHILS % 77.8 % (40.0-76.0); PLATELET 132 x1000/uL (130-400); RED BLOOD CELL COUNT 3.14 mill/uL (4.2-5.4); RED CELL DISTRIBUTION WIDTH 21.6 % (11.6-14.6)
[2022-01-25 16:00] VITALS: BP 150/75
[2022-01-25] MEDS ORDERED: P20 MT (16:42)
[2022-01-25] MEDS ORDERED: POTA-205 MT (16:42)
[2022-01-25] MEDS ORDERED: CHOL400D7 MT (16:42)
[2022-01-25] MEDS ORDERED: FERR-71 MT (16:42)
[2022-01-25] MEDS ORDERED: RIFA550T MT (16:42)
[2022-01-25] MEDS ORDERED: METO10TA8 MT (16:42)
[2022-01-25] MEDS: DEXT 5%/0.45% NACL 1000ML 1,000 ML IV SCH (16:45)
[2022-01-25] MEDS: NYSTATIN POWDER 15GM TOP SCH (17:00)
[2022-01-25 20:00] VITALS: BP 120/63
[2022-01-26] VITALS: BP 96/58
[2022-01-26 04:00] VITALS: BP 117/50
[2022-01-26] MEDS: NYSTATIN POWDER 15GM TOP SCH ×2 (05:23→17:00)
[2022-01-26 08:13] VITALS: BP 115/56
[2022-01-26] MEDS: DEXT 5%/0.45% NACL 1000ML 1,000 ML IV SCH ×2 (08:44→20:27)
[2022-01-26] MEDS: SOTALOL HCL 80MG TABLET PO SCH ×2 (08:44→20:26)
[2022-01-26] MEDS: MAGNESIUM OXIDE 400MG TABLET PO SCH (08:45)
[2022-01-26] MEDS: AMLODIPINE 5MG TABLET PO SCH ×2 (08:45→20:27)
[2022-01-26] MEDS ORDERED: POLYMYXIN B SULFATE 500000 UNITS/VIAL ONE (11:12)
[2022-01-26] MEDS ORDERED: LIDOCAINE HCL/EPINEPHRINE 1%-EPI 1:100,000 20 ML VIAL ONE (11:13)
[2022-01-26] MEDS ORDERED: BUPIVACAINE HCL/PF 0.5% (5MG/ML) 30ML ONE (11:13)
[2022-01-26] MEDS ORDERED: VANCOMYCIN HCL 1 GM/VIAL ONE (11:13)
[2022-01-26 11:42] LABS: CHLORIDE 104 mEq/L (98-107)
[2022-01-26 12:17] VITALS: BP 133/78
[2022-01-26 12:48] LABS: CLARITY URINE TURBID (CLEAR); COLOR URINE DARK YELLOW (YELLOW); KETONES URINE TRACE (NEGATIVE); LEUKOCYTE ESTERASE URINE TRACE (NEGATIVE); NITRITE URINE POSITIVE (NEGATIVE); OCCULT BLOOD URINE NEGATIVE (NEGATIVE); PH URINE 8.5 (4.5-8.0); PROTEIN URINE 1+ (NEGATIVE); SPECIFIC GRAVITY URINE 1.019 (1.005-1.030)
[2022-01-26] MEDS ORDERED: KCL 20MEQ/100ML PREMIX 100 ML IV NR ×2 (14:00→15:30)
[2022-01-26] MEDS ORDERED: LIDOCAINE HCL 1% 50ML VIAL (10MG/ML) ONE (14:40)
[2022-01-26] MEDS ORDERED: CEFAZOLIN SODIUM 1000MG/VIAL ONE (16:10)
[2022-01-26] MEDS ORDERED: DEXAMETHASONE 4MG/ML 1ML VIAL ONE (16:10)
[2022-01-26] MEDS ORDERED: EPHEDRINE SULFATE 50MG/ML VIAL ONE (16:10)
[2022-01-26] MEDS ORDERED: DIGOXIN 500MCG/2ML AMP IV NR (17:06)
[2022-01-26] MEDS ORDERED: METOPROLOL TARTRATE 5MG/5ML VIAL IV NR ×2 (17:15→17:30)
[2022-01-26] MEDS ORDERED: METOPROLOL TARTRATE 5MG/5ML VIAL IV ONE (17:16)
[2022-01-26] MEDS ORDERED: DIGOXIN 500MCG/2ML AMP IV SCH (18:00)
[2022-01-26] MEDS: CEFAZOLIN 2,000 MG in DEXT 5% WATER 100 ML IV SCH (18:09)
[2022-01-26 20:00] VITALS: BP 135/61
[2022-01-26 20:14] LABS: HEMATOCRIT. 30.9 % (36.0-48.0); HEMOGLOBIN. 9.7 g/dL (12.0-16.0); MEAN CORPUSCULAR HEMOGLOBIN 27.4 pg (28.0-32.0); MEAN CORPUSCULAR VOLUME 87.4 fL (81.0-99.0); MEAN PLATELET VOLUME 9.3 fl (7.4-10.4); PLATELET 161 x1000/uL (130-400); RED BLOOD CELL COUNT 3.54 mill/uL (4.2-5.4); RED CELL DISTRIBUTION WIDTH 20.8 % (11.6-14.6)
[2022-01-26 20:24] LABS: CHLORIDE 104 mEq/L (98-107)
[2022-01-26] MEDS: RIFAXIMIN 550 MG TABLET PO SCH (20:26)
[2022-01-26] MEDS: DILTIAZEM HCL 60MG TABLET PO SCH (20:27)
[2022-01-26 22:10] LABS: PLATELET ESTIMATE NORMAL
[2022-01-27] VITALS: BP 104/53
[2022-01-27] MEDS: CEFAZOLIN 2,000 MG in DEXT 5% WATER 100 ML IV SCH ×3 (01:09→16:44)
[2022-01-27 04:00] VITALS: BP 108/44
[2022-01-27 05:45] LABS: CHLORIDE 103 mEq/L (98-107)
[2022-01-27] MEDS: DILTIAZEM HCL 60MG TABLET PO SCH (06:00)
[2022-01-27 06:27] LABS: BASOPHILS % 0.1 % (0.0-2.0); HEMATOCRIT. 27.9 % (36.0-48.0); HEMOGLOBIN. 8.7 g/dL (12.0-16.0); LYMPHOCYTES % 8.8 % (20.0-50.0); MEAN CORPUSCULAR VOLUME 86.6 fL (81.0-99.0); MEAN PLATELET VOLUME 9.7 fl (7.4-10.4); MONOCYTES % 5.9 % (2.0-8.0); NEUTROPHILS % 85.2 % (40.0-76.0); PLATELET 170 x1000/uL (130-400); RED BLOOD CELL COUNT 3.22 mill/uL (4.2-5.4); RED CELL DISTRIBUTION WIDTH 21.3 % (11.6-14.6)
[2022-01-27 07:44] VITALS: BP_SYST 110; BP_DIAS 48; BP_DIAS 64
[2022-01-27] MEDS: SOTALOL HCL 80MG TABLET PO SCH ×2 (08:28→21:35)
[2022-01-27] MEDS: AMLODIPINE 5MG TABLET PO SCH (08:28)
[2022-01-27] MEDS: RIFAXIMIN 550 MG TABLET PO SCH ×2 (08:53→21:35)
[2022-01-27] MEDS: MAGNESIUM OXIDE 400MG TABLET PO SCH (08:53)
[2022-01-27] MEDS: DEXT 5%/0.45% NACL 1000ML 1,000 ML IV SCH ×2 (09:48→23:42)
[2022-01-27 11:57] VITALS: BP_SYST 112; BP_DIAS 56; BP_DIAS 69
[2022-01-27] MEDS: HYDROCODONE/ACETAMINOPHEN 5/325MG TABLET PO PRN (12:23)
[2022-01-27] MEDS: DILTIAZEM HCL 30MG TABLET PO SCH ×2 (12:23→18:14)
[2022-01-27 16:00] VITALS: BP 114/72
[2022-01-27] MEDS: APIXABAN 2.5 MG TABLET PO SCH (16:43)
[2022-01-27] MEDS: NYSTATIN POWDER 15GM TOP SCH (17:00)
[2022-01-27] MEDS: DIGOXIN 125MCG TABLET PO SCH (18:14)
[2022-01-27 20:00] VITALS: BP 115/52
[2022-01-28] VITALS: BP 124/54
[2022-01-28] MEDS: DILTIAZEM HCL 30MG TABLET PO SCH ×4 (00:28→19:51)
[2022-01-28] MEDS: CEFAZOLIN 2,000 MG in DEXT 5% WATER 100 ML IV SCH ×2 (01:23→10:09)
[2022-01-28 04:00] VITALS: BP 117/48
[2022-01-28] MEDS: NYSTATIN POWDER 15GM TOP SCH ×2 (05:50→19:52)
[2022-01-28 06:50] LABS: CHLORIDE 103 mEq/L (98-107)
[2022-01-28 07:24] LABS: BASOPHILS % 0.2 % (0.0-2.0); HEMATOCRIT. 28.6 % (36.0-48.0); HEMOGLOBIN. 9.1 g/dL (12.0-16.0); LYMPHOCYTES % 8.6 % (20.0-50.0); MEAN CORPUSCULAR HEMOGLOBIN 27.8 pg (28.0-32.0); MEAN CORPUSCULAR VOLUME 87.1 fL (81.0-99.0); MEAN PLATELET VOLUME 9.5 fl (7.4-10.4); MONOCYTES % 9.3 % (2.0-8.0); NEUTROPHILS % 81.9 % (40.0-76.0); PLATELET 176 x1000/uL (130-400); RED BLOOD CELL COUNT 3.28 mill/uL (4.2-5.4); RED CELL DISTRIBUTION WIDTH 21.1 % (11.6-14.6)
[2022-01-28 08:00] VITALS: BP 148/52
[2022-01-28] MEDS: RIFAXIMIN 550 MG TABLET PO SCH ×2 (10:09→22:18)
[2022-01-28] MEDS: APIXABAN 2.5 MG TABLET PO SCH ×2 (10:09→19:52)
[2022-01-28] MEDS: MAGNESIUM OXIDE 400MG TABLET PO SCH (10:14)
[2022-01-28] MEDS: SOTALOL HCL 80MG TABLET PO SCH ×2 (10:23→21:00)
[2022-01-28 12:00] VITALS: BP 129/51
[2022-01-28 16:00] VITALS: BP 153/64
[2022-01-28] MEDS: DIGOXIN 125MCG TABLET PO SCH (19:51)
[2022-01-28 20:00] VITALS: BP 143/60
[2022-01-28] MEDS: HYDROCODONE/ACETAMINOPHEN 5/325MG TABLET PO PRN (22:18)
[2022-01-28] MEDS: DEXT 5%/0.45% NACL 1000ML 1,000 ML IV SCH (22:19)
[2022-01-29] VITALS: BP 164/62
[2022-01-29] MEDS: DILTIAZEM HCL 30MG TABLET PO SCH ×4 (00:54→18:04)
[2022-01-29 04:00] VITALS: BP 137/58
[2022-01-29] MEDS: NYSTATIN POWDER 15GM TOP SCH ×2 (06:49→18:05)
[2022-01-29] MEDS: DEXT 5%/0.45% NACL 1000ML 1,000 ML IV SCH ×2 (06:50→18:05)
[2022-01-29 06:57] LABS: BASOPHILS % 0.2 % (0.0-2.0); EOSINOPHILS % 0.5 % (0.0-5.0); HEMATOCRIT. 27.8 % (36.0-48.0); LYMPHOCYTES % 12.5 % (20.0-50.0); MEAN CORPUSCULAR HEMOGLOBIN 27.5 pg (28.0-32.0); MEAN CORPUSCULAR VOLUME 85.4 fL (81.0-99.0); MEAN PLATELET VOLUME 8.8 fl (7.4-10.4); MONOCYTES % 12.1 % (2.0-8.0); NEUTROPHILS % 74.7 % (40.0-76.0); PLATELET 205 x1000/uL (130-400); RED BLOOD CELL COUNT 3.26 mill/uL (4.2-5.4); RED CELL DISTRIBUTION WIDTH 20.5 % (11.6-14.6)
[2022-01-29 07:15] LABS: CHLORIDE 101 mEq/L (98-107)
[2022-01-29 08:06] VITALS: BP 116/45
[2022-01-29] MEDS: APIXABAN 2.5 MG TABLET PO SCH ×2 (09:14→18:04)
[2022-01-29] MEDS: RIFAXIMIN 550 MG TABLET PO SCH (09:14)
[2022-01-29] MEDS: MAGNESIUM OXIDE 400MG TABLET PO SCH (09:14)
[2022-01-29] MEDS: SOTALOL HCL 80MG TABLET PO SCH (09:28)
[2022-01-29 12:23] VITALS: BP 134/81
[2022-01-29 16:02] VITALS: BP 140/43
[2022-01-29 17:05] VITALS: BP 140/43
[2022-02-21] MEDS ORDERED: ASCO500T20 PO (13:49)
[2022-02-21] MEDS ORDERED: LIP40 PO (13:49)
[2022-02-21] MEDS ORDERED: SOTA80TA25 PO (13:49)
[2022-02-21] MEDS ORDERED: LACT10SO7 PO (13:49)
[2022-02-21] MEDS ORDERED: ASPI-1160 PO (13:49)
[2022-02-21] MEDS ORDERED: CHOL4PAC5 PO (13:49)
[2022-02-21] MEDS ORDERED: FERR-63 PO (13:49)
[2022-02-21] MEDS ORDERED: MESA400C PO (13:49)
[2022-02-22] MEDS ORDERED: MED4 MT (12:00)
== END 2022-01-29 19:45 | DRG 481 ==
LOC: ER 08:26 → 6WST 12:46 → EDBEDREQ 12:58 → ENRESERV 13:19
PROVIDERS: ADMIT Internal Medicine; ATTEND Internal Medicine
PROC: 0QS604Z Reposition Right Upper Femur with Internal Fixation Device, Open Approach (ICD-10-PCS; principal; 2022-01-26)
DX: S72.141A Displaced intertrochanteric fracture of right femur, initial encounter for closed fracture (principal); E44.1 Mild protein-calorie malnutrition; K50.90 Crohn's disease, unspecified, without complications; N39.0 Urinary tract infection, site not specified; E87.6 Hypokalemia; E83.42 Hypomagnesemia; Z20.822 Contact with and (suspected) exposure to COVID-19; I25.10 Atherosclerotic heart disease of native coronary artery without angina pectoris; I50.9 Heart failure, unspecified; K74.60 Unspecified cirrhosis of liver; I48.0 Paroxysmal atrial fibrillation; R26.9 Unspecified abnormalities of gait and mobility; D64.9 Anemia, unspecified; G31.84 Mild cognitive impairment of uncertain or unknown etiology; I11.0 Hypertensive heart disease with heart failure; Z79.01 Long term (current) use of anticoagulants; Z79.899 Other long term (current) drug therapy; Z86.73 Personal history of transient ischemic attack (TIA), and cerebral infarction without residual deficits; W01.0XXA Fall on same level from slipping, tripping and stumbling without subsequent striking against object, initial encounter; Y93.01 Activity, walking, marching and hiking; Y92.002 Bathroom of unspecified non-institutional (private) residence as the place of occurrence of the external cause; Y99.8 Other external cause status; H10.9 Unspecified conjunctivitis; I45.19 Other right bundle-branch block; R53.81 Other malaise
CPT/HCPCS: 36415; 71045; 73502; 73503; 73551; 73700; 76000; 80048; 80053; 81003; 83735; 84484; 85025; 86850; 86900; 87426; 93005; 93306; 97110; 97162; 97166; 97530; 99291; C1713; C9803; J0690; J1100; J1160; J1650; J2270; J2405; J3370; J3475; J3480; J3490; J7060

== ENCOUNTER 2022-01-29 19:45 | Inpatient (IN) | payer MEDICARE ==
[~2022-01-29] VITALS: Ht 165.1 cm; Wt 79.8 kg
[2022-01-29 19:45] VITALS: BP 130/55
[~2022-01-29 19:45] MED LIST changes: +CHOL400D7 MT; +FERR-71 MT; +METO10TA8 MT; +P20 MT; +POTA-205 MT; +RIFA550T MT
[2022-01-29 20:00] VITALS: BP 130/55
[2022-01-29] MEDS ORDERED: ONDANSETRON HCL 4MG TABLET PO PRN (23:15)
[2022-01-29] MEDS ORDERED: MAGNESIUM/ALUMINUM HYDROXIDE/SIMETHICONE 30ML UDC PO PRN (23:15)
[2022-01-29] MEDS ORDERED: ZOLPIDEM TARTRATE 5MG TABLET PO PRN (23:15)
[2022-01-29] MEDS ORDERED: CLONIDINE 0.1MG TABLET PO PRN (23:15)
[2022-01-30] MEDS: DILTIAZEM HCL 30MG TABLET PO SCH ×4 (00:46→22:33)
[2022-01-30 08:00] VITALS: BP 129/45
[2022-01-30] MEDS ORDERED: APIXABAN 2.5 MG TABLET PO SCH (09:00)
[2022-01-30] MEDS: NYSTATIN POWDER 15GM TOP SCH ×2 (09:00→22:34)
[2022-01-30] MEDS ORDERED: RIFAXIMIN 550 MG TABLET PO SCH (09:00)
[2022-01-30] MEDS ORDERED: SOTALOL HCL 80MG TABLET PO SCH (09:00)
[2022-01-30 09:48] LABS: BASOPHILS % 0.3 % (0.0-2.0); EOSINOPHILS % 1.3 % (0.0-5.0); HEMOGLOBIN. 7.7 g/dL (12.0-16.0); LYMPHOCYTES % 16.1 % (20.0-50.0); MEAN CORPUSCULAR HEMOGLOBIN 26.6 pg (28.0-32.0); MEAN CORPUSCULAR VOLUME 86.5 fL (81.0-99.0); MEAN PLATELET VOLUME 8.7 fl (7.4-10.4); MONOCYTES % 9.9 % (2.0-8.0); NEUTROPHILS % 72.4 % (40.0-76.0); PLATELET 147 x1000/uL (130-400); RED BLOOD CELL COUNT 2.89 mill/uL (4.2-5.4)
[2022-01-30 09:56] LABS: CHLORIDE 105 mEq/L (98-107)
[2022-01-30] MEDS: SOTALOL HCL 80MG TABLET PO SCH ×2 (10:07→22:34)
[2022-01-30] MEDS: MAGNESIUM OXIDE 400MG TABLET PO SCH (10:07)
[2022-01-30] MEDS: RIFAXIMIN 550 MG TABLET PO SCH ×2 (10:08→22:34)
[2022-01-30] MEDS ORDERED: PANTOPRAZOLE SODIUM 40 MG/VIAL IV NR (14:15)
[2022-01-30 20:00] VITALS: BP 134/53
[2022-01-30] MEDS: PANTOPRAZOLE SODIUM 40 MG/VIAL IV SCH (22:35)
[2022-01-31 05:41] LABS: CHLORIDE 104 mEq/L (98-107)
[2022-01-31 06:07] LABS: TOTAL IRON BINDING CAPACITY 182 ug/dL (250-450)
[2022-01-31] MEDS: DILTIAZEM HCL 30MG TABLET PO SCH (06:09)
[2022-01-31 06:11] LABS: FOLIC ACID (FOLATE) SERUM 12.2 ng/mL (>5.38)
[2022-01-31 06:30] LABS: BASOPHILS % 0.5 % (0.0-2.0); EOSINOPHILS % 1.1 % (0.0-5.0); HEMATOCRIT. 25.1 % (36.0-48.0); HEMOGLOBIN. 7.9 g/dL (12.0-16.0); MEAN CORPUSCULAR VOLUME 85.8 fL (81.0-99.0); MONOCYTES % 10.2 % (2.0-8.0); NEUTROPHILS % 74.2 % (40.0-76.0); PLATELET 147 x1000/uL (130-400); RED BLOOD CELL COUNT 2.93 mill/uL (4.2-5.4); RED CELL DISTRIBUTION WIDTH 20.3 % (11.6-14.6)
[2022-01-31 08:00] VITALS: BP 116/71
[2022-01-31] MEDS ORDERED: PANTOPRAZOLE SODIUM 40 MG/VIAL IV SCH (09:00)
[2022-01-31] MEDS: SOTALOL HCL 80MG TABLET PO SCH ×2 (09:00→20:30)
[2022-01-31] MEDS: RIFAXIMIN 550 MG TABLET PO SCH ×2 (10:12→20:30)
[2022-01-31] MEDS: MAGNESIUM OXIDE 400MG TABLET PO SCH (10:12)
[2022-01-31] MEDS: PANTOPRAZOLE SODIUM 40 MG/VIAL IV SCH ×2 (10:21→20:30)
[2022-01-31] MEDS: FERROUS SULFATE 325MG TABLET PO SCH ×3 (10:58→18:19)
[2022-01-31] MEDS: ASCORBIC ACID 500 MG TABLET PO SCH (10:58)
[2022-01-31] MEDS: NYSTATIN POWDER 15GM TOP SCH ×2 (10:58→20:31)
[2022-01-31] MEDS: CYANOCOBALAMIN 1000MCG/ML VIAL IM SCH (10:58)
[2022-01-31 11:18] LABS: HEMATOCRIT 26.6 % (36.0-48.0); HEMOGLOBIN 8.1 g/dL (12.0-16.0)
[2022-01-31] MEDS ORDERED: METHYLPREDNISOLONE SOD SUCC 40 MG/ML VIAL IV SCH (12:00)
[2022-01-31] MEDS: MESALAMINE 400 MG CAPSULE.DR PO SCH ×2 (14:28→18:18)
[2022-01-31] MEDS: ACETAMINOPHEN 325MG TABLET PO PRN (14:30)
[2022-01-31] MEDS: SODIUM CHLORIDE 0.45% 1,000 ML IV SCH (17:42)
[2022-01-31 17:45] LABS: HEMATOCRIT 25.3 % (36.0-48.0); HEMOGLOBIN 7.8 g/dL (12.0-16.0)
[2022-01-31 20:15] VITALS: BP 124/62
[2022-01-31 23:46] LABS: HEMATOCRIT 26.2 % (36.0-48.0); HEMOGLOBIN 8.2 g/dL (12.0-16.0)
[2022-02-01] MEDS: ACETAMINOPHEN 325MG TABLET PO PRN ×2 (02:19→13:49)
[2022-02-01] MEDS: SODIUM CHLORIDE 0.45% 1,000 ML IV SCH ×2 (05:11→13:58)
[2022-02-01] MEDS: NEOMYCIN 500MG TABLET PO SCH ×3 (05:11→21:02)
[2022-02-01] MEDS: METHYLPREDNISOLONE SOD SUCC 40 MG/ML VIAL IV SCH ×2 (05:11→16:43)
[2022-02-01 05:54] LABS: INR 1.2; PROTHROMBIN TIME 12.7 sec (9.6-11.0)
[2022-02-01 06:01] LABS: CHLORIDE 105 mEq/L (98-107)
[2022-02-01 06:36] LABS: BASOPHILS % 0.4 % (0.0-2.0); EOSINOPHILS % 0.4 % (0.0-5.0); HEMATOCRIT. 25.6 % (36.0-48.0); HEMOGLOBIN. 8.1 g/dL (12.0-16.0); LYMPHOCYTES % 12.2 % (20.0-50.0); MEAN CORPUSCULAR HEMOGLOBIN 27.6 pg (28.0-32.0); MEAN PLATELET VOLUME 9.8 fl (7.4-10.4); MONOCYTES % 1.5 % (2.0-8.0); NEUTROPHILS % 85.5 % (40.0-76.0); PLATELET 191 x1000/uL (130-400); RED BLOOD CELL COUNT 2.95 mill/uL (4.2-5.4); RED CELL DISTRIBUTION WIDTH 20.7 % (11.6-14.6)
[2022-02-01 08:00] VITALS: BP 126/68
[2022-02-01] MEDS: PANTOPRAZOLE SODIUM 40 MG/VIAL IV SCH ×2 (08:32→20:48)
[2022-02-01] MEDS: CYANOCOBALAMIN 1000MCG/ML VIAL IM SCH (08:32)
[2022-02-01] MEDS: RIFAXIMIN 550 MG TABLET PO SCH ×2 (08:32→20:48)
[2022-02-01] MEDS: NYSTATIN POWDER 15GM TOP SCH ×2 (08:32→20:48)
[2022-02-01] MEDS: FERROUS SULFATE 325MG TABLET PO SCH ×3 (08:33→16:43)
[2022-02-01] MEDS: MAGNESIUM OXIDE 400MG TABLET PO SCH (08:33)
[2022-02-01] MEDS: MESALAMINE 400 MG CAPSULE.DR PO SCH ×3 (08:33→16:43)
[2022-02-01] MEDS: SOTALOL HCL 80MG TABLET PO SCH ×2 (08:33→20:48)
[2022-02-01] MEDS: ASCORBIC ACID 500 MG TABLET PO SCH (08:33)
[2022-02-01] MEDS: MIDODRINE HCL 5MG TABLET PO SCH ×3 (08:38→16:44)
[2022-02-01 20:00] VITALS: BP 132/63
[2022-02-02] MEDS: SODIUM CHLORIDE 0.45% 1,000 ML IV SCH ×2 (04:20→17:33)
[2022-02-02] MEDS: NEOMYCIN 500MG TABLET PO SCH ×3 (05:36→21:57)
[2022-02-02] MEDS: METHYLPREDNISOLONE SOD SUCC 40 MG/ML VIAL IV SCH ×2 (05:36→17:33)
[2022-02-02 06:43] LABS: HEMOGLOBIN. 7.4 g/dL (12.0-16.0); MEAN CORPUSCULAR HEMOGLOBIN 27.1 pg (28.0-32.0); MEAN CORPUSCULAR VOLUME 88.1 fL (81.0-99.0); PLATELET 180 x1000/uL (130-400); RED BLOOD CELL COUNT 2.73 mill/uL (4.2-5.4)
[2022-02-02 06:48] LABS: CHLORIDE 102 mEq/L (98-107)
[2022-02-02 07:28] LABS: PLATELET ESTIMATE NORMAL
[2022-02-02 08:00] VITALS: BP 158/68
[2022-02-02] MEDS: RIFAXIMIN 550 MG TABLET PO SCH ×2 (08:38→20:11)
[2022-02-02] MEDS: ASCORBIC ACID 500 MG TABLET PO SCH (08:38)
[2022-02-02] MEDS: FERROUS SULFATE 325MG TABLET PO SCH ×3 (08:38→17:32)
[2022-02-02] MEDS: ACETAMINOPHEN 325MG TABLET PO PRN (08:38)
[2022-02-02] MEDS: MESALAMINE 400 MG CAPSULE.DR PO SCH ×3 (08:39→17:32)
[2022-02-02] MEDS: NYSTATIN POWDER 15GM TOP SCH ×2 (08:39→21:56)
[2022-02-02] MEDS: CYANOCOBALAMIN 1000MCG/ML VIAL IM SCH (08:39)
[2022-02-02] MEDS: MIDODRINE HCL 5MG TABLET PO SCH ×3 (08:39→17:32)
[2022-02-02] MEDS: PANTOPRAZOLE SODIUM 40 MG/VIAL IV SCH ×2 (08:39→21:56)
[2022-02-02] MEDS: SOTALOL HCL 80MG TABLET PO SCH ×2 (08:39→20:12)
[2022-02-02] MEDS: MAGNESIUM OXIDE 400MG TABLET PO SCH (09:00)
[2022-02-02] MEDS ORDERED: POTASSIUM CHLORIDE 20MEQ/PACKET PO NR (12:30)
[2022-02-02] MEDS: LACTULOSE 20G/30ML UDC PO SCH ×2 (13:40→21:57)
[2022-02-02 16:17] LABS: HEMATOCRIT 27.2 % (36.0-48.0); HEMOGLOBIN 8.3 g/dL (12.0-16.0)
[2022-02-02 20:00] VITALS: BP 163/80
[2022-02-03] MEDS: SODIUM CHLORIDE 0.45% 1,000 ML IV SCH (01:55)
[2022-02-03] MEDS: LACTULOSE 20G/30ML UDC PO SCH ×3 (06:00→22:00)
[2022-02-03] MEDS: METHYLPREDNISOLONE SOD SUCC 40 MG/ML VIAL IV SCH ×2 (06:13→18:12)
[2022-02-03 06:50] LABS: CHLORIDE 106 mEq/L (98-107)
[2022-02-03 06:51] LABS: EOSINOPHILS % 0.1 % (0.0-5.0); HEMATOCRIT. 26.3 % (36.0-48.0); LYMPHOCYTES % 11.1 % (20.0-50.0); MEAN CORPUSCULAR HEMOGLOBIN 27.2 pg (28.0-32.0); MEAN CORPUSCULAR VOLUME 88.9 fL (81.0-99.0); MEAN PLATELET VOLUME 9.1 fl (7.4-10.4); NEUTROPHILS % 81.8 % (40.0-76.0); PLATELET 235 x1000/uL (130-400); RED BLOOD CELL COUNT 2.95 mill/uL (4.2-5.4); RED CELL DISTRIBUTION WIDTH 21.5 % (11.6-14.6)
[2022-02-03 08:00] VITALS: BP 109/64
[2022-02-03] MEDS: SOTALOL HCL 80MG TABLET PO SCH ×2 (09:00→21:00)
[2022-02-03] MEDS: MIDODRINE HCL 5MG TABLET PO SCH ×3 (09:05→18:12)
[2022-02-03] MEDS: ASCORBIC ACID 500 MG TABLET PO SCH (09:05)
[2022-02-03] MEDS: MAGNESIUM OXIDE 400MG TABLET PO SCH (09:05)
[2022-02-03] MEDS: MESALAMINE 400 MG CAPSULE.DR PO SCH ×3 (09:05→18:12)
[2022-02-03] MEDS: RIFAXIMIN 550 MG TABLET PO SCH ×2 (09:05→21:00)
[2022-02-03] MEDS: FERROUS SULFATE 325MG TABLET PO SCH ×3 (09:06→18:13)
[2022-02-03] MEDS: PANTOPRAZOLE SODIUM 40 MG/VIAL IV SCH (09:06)
[2022-02-03] MEDS: CYANOCOBALAMIN 1000MCG/ML VIAL IM SCH (09:06)
[2022-02-03] MEDS: NYSTATIN POWDER 15GM TOP SCH ×2 (09:06→21:00)
[2022-02-03] MEDS: PANTOPRAZOLE 40MG DR TABLET PO SCH (18:12)
[2022-02-03 20:00] VITALS: BP 143/59
[2022-02-04 05:45] LABS: BASOPHILS % 0.1 % (0.0-2.0); HEMATOCRIT. 29.7 % (36.0-48.0); LYMPHOCYTES % 8.3 % (20.0-50.0); MEAN CORPUSCULAR HEMOGLOBIN 27.3 pg (28.0-32.0); MEAN CORPUSCULAR VOLUME 89.7 fL (81.0-99.0); MEAN PLATELET VOLUME 8.7 fl (7.4-10.4); MONOCYTES % 5.6 % (2.0-8.0); PLATELET 226 x1000/uL (130-400); RED BLOOD CELL COUNT 3.31 mill/uL (4.2-5.4); RED CELL DISTRIBUTION WIDTH 21.6 % (11.6-14.6)
[2022-02-04] MEDS: METHYLPREDNISOLONE SOD SUCC 40 MG/ML VIAL IV SCH ×2 (05:57→17:49)
[2022-02-04] MEDS: LACTULOSE 20G/30ML UDC PO SCH ×3 (06:00→20:56)
[2022-02-04 06:46] LABS: CHLORIDE 105 mEq/L (98-107)
[2022-02-04 07:30] LABS: INR 1.3; PROTHROMBIN TIME 13.3 sec (9.6-11.0)
[2022-02-04 08:00] VITALS: BP 161/74
[2022-02-04] MEDS: MESALAMINE 400 MG CAPSULE.DR PO SCH ×3 (09:02→17:50)
[2022-02-04] MEDS: MAGNESIUM OXIDE 400MG TABLET PO SCH (09:03)
[2022-02-04] MEDS: PANTOPRAZOLE 40MG DR TABLET PO SCH ×2 (09:03→20:54)
[2022-02-04] MEDS: FERROUS SULFATE 325MG TABLET PO SCH ×3 (09:04→17:50)
[2022-02-04] MEDS: ASCORBIC ACID 500 MG TABLET PO SCH (09:04)
[2022-02-04] MEDS: RIFAXIMIN 550 MG TABLET PO SCH (09:13)
[2022-02-04] MEDS: SOTALOL HCL 80MG TABLET PO SCH ×2 (09:13→20:55)
[2022-02-04] MEDS: CYANOCOBALAMIN 1000MCG/ML VIAL IM SCH (09:14)
[2022-02-04] MEDS: MIDODRINE HCL 5MG TABLET PO SCH ×3 (09:14→17:00)
[2022-02-04] MEDS: NYSTATIN POWDER 15GM TOP SCH ×2 (09:38→20:59)
[2022-02-04] MEDS ORDERED: PROPOFOL 200MG/20ML VIAL IV ONE (14:14)
[2022-02-04] MEDS ORDERED: MIDAZOLAM HCL 2 MG/2 ML VIAL ONE (14:15)
[2022-02-04 20:57] VITALS: BP 141/61
[2022-02-05] MEDS: METHYLPREDNISOLONE SOD SUCC 40 MG/ML VIAL IV SCH ×2 (06:22→17:15)
[2022-02-05] MEDS: LACTULOSE 20G/30ML UDC PO SCH ×3 (06:22→21:46)
[2022-02-05 08:00] VITALS: BP 122/88
[2022-02-05] MEDS: MESALAMINE 400 MG CAPSULE.DR PO SCH ×3 (08:39→17:14)
[2022-02-05] MEDS: FERROUS SULFATE 325MG TABLET PO SCH ×3 (08:40→17:15)
[2022-02-05] MEDS: MAGNESIUM OXIDE 400MG TABLET PO SCH (08:40)
[2022-02-05] MEDS: PANTOPRAZOLE 40MG DR TABLET PO SCH ×2 (08:40→21:45)
[2022-02-05] MEDS: ASCORBIC ACID 500 MG TABLET PO SCH (08:41)
[2022-02-05] MEDS: NYSTATIN POWDER 15GM TOP SCH ×2 (08:46→21:46)
[2022-02-05] MEDS: SOTALOL HCL 80MG TABLET PO SCH ×2 (08:57→21:00)
[2022-02-05] MEDS: MIDODRINE HCL 5MG TABLET PO SCH ×3 (08:59→17:15)
[2022-02-05] MEDS: CHOLESTYRAMINE/SUCROSE 4G POWDER PACKET PO SCH (15:06)
[2022-02-05 20:00] VITALS: BP 127/82
[2022-02-06 04:11] LABS: 25-HYDROXY VITAMIN D3 24 ng/mL (.)
[2022-02-06] MEDS: LACTULOSE 20G/30ML UDC PO SCH ×3 (05:14→20:51)
[2022-02-06 06:48] LABS: BASOPHILS % 0.3 % (0.0-2.0); EOSINOPHILS % 0.4 % (0.0-5.0); HEMATOCRIT. 31.3 % (36.0-48.0); HEMOGLOBIN. 9.7 g/dL (12.0-16.0); LYMPHOCYTES % 7.6 % (20.0-50.0); MEAN CORPUSCULAR HEMOGLOBIN 27.9 pg (28.0-32.0); MEAN CORPUSCULAR VOLUME 90.3 fL (81.0-99.0); MONOCYTES % 9.7 % (2.0-8.0); PLATELET 246 x1000/uL (130-400); RED BLOOD CELL COUNT 3.47 mill/uL (4.2-5.4); RED CELL DISTRIBUTION WIDTH 22.2 % (11.6-14.6)
[2022-02-06 07:23] LABS: CHLORIDE 103 mEq/L (98-107)
[2022-02-06 08:00] VITALS: BP 149/73
[2022-02-06] MEDS: CHOLESTYRAMINE/SUCROSE 4G POWDER PACKET PO SCH (08:58)
[2022-02-06] MEDS: AZATHIOPRINE 50MG TABLET PO SCH (08:59)
[2022-02-06] MEDS: MAGNESIUM OXIDE 400MG TABLET PO SCH (08:59)
[2022-02-06] MEDS: FERROUS SULFATE 325MG TABLET PO SCH ×3 (08:59→17:19)
[2022-02-06] MEDS: PREDNISONE 20MG TABLET PO SCH (08:59)
[2022-02-06] MEDS: PANTOPRAZOLE 40MG DR TABLET PO SCH ×2 (08:59→20:49)
[2022-02-06] MEDS: MESALAMINE 400 MG CAPSULE.DR PO SCH ×3 (08:59→17:18)
[2022-02-06] MEDS: ASCORBIC ACID 500 MG TABLET PO SCH (09:00)
[2022-02-06] MEDS: MIDODRINE HCL 5MG TABLET PO SCH ×3 (09:00→17:19)
[2022-02-06] MEDS: SOTALOL HCL 80MG TABLET PO SCH ×2 (09:00→20:48)
[2022-02-06] MEDS: NYSTATIN POWDER 15GM TOP SCH ×2 (09:10→20:51)
[2022-02-06] MEDS ORDERED: SODIUM POLYSTYRENE SULFONATE 15 G/60 ML BOT PO NR (11:15)
[2022-02-06] MEDS: RIFAXIMIN 550 MG TABLET PO SCH ×2 (12:55→20:49)
[2022-02-06] MEDS: ERGOCALCIFEROL 50000UNITS CAPSULE PO SCH (12:55)
[2022-02-06 20:00] VITALS: BP 155/80
[2022-02-07] MEDS: LACTULOSE 20G/30ML UDC PO SCH ×3 (05:39→20:39)
[2022-02-07 06:29] LABS: CHLORIDE 103 mEq/L (98-107)
[2022-02-07 06:51] LABS: HEMATOCRIT. 30.3 % (36.0-48.0); HEMOGLOBIN. 9.5 g/dL (12.0-16.0); MEAN CORPUSCULAR HEMOGLOBIN 28.1 pg (28.0-32.0); MEAN CORPUSCULAR VOLUME 89.6 fL (81.0-99.0); MEAN PLATELET VOLUME 8.9 fl (7.4-10.4); PLATELET 203 x1000/uL (130-400); RED BLOOD CELL COUNT 3.38 mill/uL (4.2-5.4)
[2022-02-07 08:00] VITALS: BP 125/60
[2022-02-07] MEDS: MESALAMINE 400 MG CAPSULE.DR PO SCH ×3 (09:41→18:37)
[2022-02-07] MEDS: RIFAXIMIN 550 MG TABLET PO SCH ×2 (09:41→20:35)
[2022-02-07] MEDS: SOTALOL HCL 80MG TABLET PO SCH ×2 (09:41→20:34)
[2022-02-07] MEDS: PREDNISONE 20MG TABLET PO SCH (09:42)
[2022-02-07] MEDS: CHOLESTYRAMINE/SUCROSE 4G POWDER PACKET PO SCH (09:42)
[2022-02-07] MEDS: FERROUS SULFATE 325MG TABLET PO SCH ×3 (09:42→18:37)
[2022-02-07] MEDS: ASCORBIC ACID 500 MG TABLET PO SCH (09:42)
[2022-02-07] MEDS: AZATHIOPRINE 50MG TABLET PO SCH (09:42)
[2022-02-07] MEDS: MAGNESIUM OXIDE 400MG TABLET PO SCH (09:42)
[2022-02-07] MEDS: MIDODRINE HCL 5MG TABLET PO SCH ×3 (09:42→18:37)
[2022-02-07] MEDS: PANTOPRAZOLE 40MG DR TABLET PO SCH ×2 (09:42→20:35)
[2022-02-07] MEDS: NYSTATIN POWDER 15GM TOP SCH ×2 (09:45→20:38)
[2022-02-07 14:56] LABS: PLATELET ESTIMATE NORMAL
[2022-02-07 20:00] VITALS: BP 126/56
[2022-02-08 06:16] LABS: HEMATOCRIT. 28.7 % (36.0-48.0); HEMOGLOBIN. 8.9 g/dL (12.0-16.0); MEAN CORPUSCULAR HEMOGLOBIN 27.6 pg (28.0-32.0); MEAN CORPUSCULAR VOLUME 89.2 fL (81.0-99.0); MEAN PLATELET VOLUME 8.9 fl (7.4-10.4); PLATELET 173 x1000/uL (130-400); RED BLOOD CELL COUNT 3.22 mill/uL (4.2-5.4); RED CELL DISTRIBUTION WIDTH 22.9 % (11.6-14.6)
[2022-02-08] MEDS: LACTULOSE 20G/30ML UDC PO SCH ×3 (06:29→22:40)
[2022-02-08 06:45] LABS: CLARITY URINE CLEAR (CLEAR); COLOR URINE YELLOW (YELLOW); KETONES URINE NEGATIVE (NEGATIVE); LEUKOCYTE ESTERASE URINE NEGATIVE (NEGATIVE); NITRITE URINE NEGATIVE (NEGATIVE); OCCULT BLOOD URINE NEGATIVE (NEGATIVE); PH URINE 6.5 (4.5-8.0); PROTEIN URINE NEGATIVE (NEGATIVE); SPECIFIC GRAVITY URINE 1.009 (1.005-1.030); UROBILINOGEN URINE 0.2 E.U./dL (0.2-1.0)
[2022-02-08 08:00] VITALS: BP 127/60
[2022-02-08] MEDS: CHOLESTYRAMINE/SUCROSE 4G POWDER PACKET PO SCH (09:19)
[2022-02-08] MEDS: PANTOPRAZOLE 40MG DR TABLET PO SCH ×2 (09:19→21:00)
[2022-02-08] MEDS: MESALAMINE 400 MG CAPSULE.DR PO SCH ×3 (09:19→17:52)
[2022-02-08] MEDS: PREDNISONE 20MG TABLET PO SCH (09:19)
[2022-02-08] MEDS: SOTALOL HCL 80MG TABLET PO SCH ×2 (09:20→22:42)
[2022-02-08] MEDS: ASCORBIC ACID 500 MG TABLET PO SCH (09:20)
[2022-02-08] MEDS: MIDODRINE HCL 5MG TABLET PO SCH ×3 (09:20→17:53)
[2022-02-08] MEDS: AZATHIOPRINE 50MG TABLET PO SCH (09:20)
[2022-02-08] MEDS: MAGNESIUM OXIDE 400MG TABLET PO SCH (09:20)
[2022-02-08] MEDS: RIFAXIMIN 550 MG TABLET PO SCH ×2 (09:20→22:43)
[2022-02-08] MEDS: FERROUS SULFATE 325MG TABLET PO SCH ×3 (09:20→17:52)
[2022-02-08] MEDS: NYSTATIN POWDER 15GM TOP SCH ×2 (09:21→22:43)
[2022-02-08 20:00] VITALS: BP 138/60
[2022-02-09] MEDS: LACTULOSE 20G/30ML UDC PO SCH ×3 (05:54→22:00)
[2022-02-09 06:48] LABS: HEMATOCRIT. 27.7 % (36.0-48.0); HEMOGLOBIN. 8.5 g/dL (12.0-16.0); MEAN CORPUSCULAR HEMOGLOBIN 27.8 pg (28.0-32.0); MEAN CORPUSCULAR VOLUME 90.6 fL (81.0-99.0); MEAN PLATELET VOLUME 9.4 fl (7.4-10.4); PLATELET 156 x1000/uL (130-400); RED BLOOD CELL COUNT 3.06 mill/uL (4.2-5.4); RED CELL DISTRIBUTION WIDTH 23.1 % (11.6-14.6)
[2022-02-09 07:46] LABS: PLATELET ESTIMATE NORMAL
[2022-02-09 08:00] VITALS: BP 146/79
[2022-02-09] MEDS: MESALAMINE 400 MG CAPSULE.DR PO SCH ×3 (08:49→18:03)
[2022-02-09] MEDS: PREDNISONE 20MG TABLET PO SCH (08:52)
[2022-02-09] MEDS: RIFAXIMIN 550 MG TABLET PO SCH ×2 (08:52→22:00)
[2022-02-09] MEDS: ASCORBIC ACID 500 MG TABLET PO SCH (08:52)
[2022-02-09] MEDS: FERROUS SULFATE 325MG TABLET PO SCH ×3 (08:52→18:04)
[2022-02-09] MEDS: MAGNESIUM OXIDE 400MG TABLET PO SCH (08:52)
[2022-02-09] MEDS: AZATHIOPRINE 50MG TABLET PO SCH (08:52)
[2022-02-09] MEDS: MEGESTROL ACETATE 400 MG/10 ML UDC PO SCH (08:53)
[2022-02-09] MEDS: PANTOPRAZOLE 40MG DR TABLET PO SCH ×2 (08:53→21:00)
[2022-02-09] MEDS: MIDODRINE HCL 5MG TABLET PO SCH ×3 (08:54→18:04)
[2022-02-09] MEDS: SOTALOL HCL 80MG TABLET PO SCH ×2 (08:55→21:00)
[2022-02-09 09:38] VITALS: BP 146/79
[2022-02-09] MEDS: NYSTATIN POWDER 15GM TOP SCH ×2 (09:42→22:00)
[2022-02-09] MEDS: NEOMYCIN 500MG TABLET PO SCH ×2 (13:33→22:01)
[2022-02-09 20:12] VITALS: BP 149/66
[2022-02-09 22:54] LABS: PLATELET ESTIMATE NORMAL
[2022-02-10] MEDS: LACTULOSE 20G/30ML UDC PO SCH ×3 (06:00→21:31)
[2022-02-10] MEDS: NEOMYCIN 500MG TABLET PO SCH ×3 (06:23→21:31)
[2022-02-10 08:00] VITALS: BP 118/71
[2022-02-10] MEDS: PREDNISONE 20MG TABLET PO SCH (08:54)
[2022-02-10] MEDS: MESALAMINE 400 MG CAPSULE.DR PO SCH ×3 (08:54→17:28)
[2022-02-10] MEDS: MAGNESIUM OXIDE 400MG TABLET PO SCH (08:55)
[2022-02-10] MEDS: PANTOPRAZOLE 40MG DR TABLET PO SCH ×2 (08:56→21:26)
[2022-02-10] MEDS: ASCORBIC ACID 500 MG TABLET PO SCH (08:56)
[2022-02-10] MEDS: MIDODRINE HCL 5MG TABLET PO SCH ×3 (08:57→17:29)
[2022-02-10] MEDS: FERROUS SULFATE 325MG TABLET PO SCH ×3 (08:57→17:28)
[2022-02-10] MEDS: SOTALOL HCL 80MG TABLET PO SCH ×2 (08:58→21:30)
[2022-02-10] MEDS: RIFAXIMIN 550 MG TABLET PO SCH ×2 (08:59→21:27)
[2022-02-10] MEDS: AZATHIOPRINE 50MG TABLET PO SCH (08:59)
[2022-02-10] MEDS: NYSTATIN POWDER 15GM TOP SCH ×2 (09:00→21:31)
[2022-02-10] MEDS: MEGESTROL ACETATE 400 MG/10 ML UDC PO SCH (09:01)
[2022-02-10 20:00] VITALS: BP 111/63
[2022-02-11] MEDS: LACTULOSE 20G/30ML UDC PO SCH ×3 (06:00→20:58)
[2022-02-11] MEDS: NEOMYCIN 500MG TABLET PO SCH (06:12)
[2022-02-11 08:00] VITALS: BP 130/68
[2022-02-11] MEDS: NYSTATIN POWDER 15GM TOP SCH ×2 (09:00→21:00)
[2022-02-11] MEDS: PANTOPRAZOLE 40MG DR TABLET PO SCH ×2 (09:51→20:58)
[2022-02-11] MEDS: SOTALOL HCL 80MG TABLET PO SCH ×2 (09:51→21:00)
[2022-02-11] MEDS: PREDNISONE 10MG TABLET PO SCH (09:54)
[2022-02-11] MEDS: MAGNESIUM OXIDE 400MG TABLET PO SCH (09:54)
[2022-02-11] MEDS: RIFAXIMIN 550 MG TABLET PO SCH (09:54)
[2022-02-11] MEDS: MEGESTROL ACETATE 400 MG/10 ML UDC PO SCH (09:54)
[2022-02-11] MEDS: ASCORBIC ACID 500 MG TABLET PO SCH (09:55)
[2022-02-11] MEDS: MESALAMINE 400 MG CAPSULE.DR PO SCH ×2 (09:55→14:00)
[2022-02-11] MEDS: FERROUS SULFATE 325MG TABLET PO SCH ×2 (09:55→14:00)
[2022-02-11] MEDS: AZATHIOPRINE 50MG TABLET PO SCH (09:55)
[2022-02-11] MEDS: MIDODRINE HCL 5MG TABLET PO SCH ×2 (09:56→14:00)
[2022-02-11 20:00] VITALS: BP 97/71
[2022-02-12] VITALS: BP 111/67
[2022-02-12] MEDS: LACTULOSE 20G/30ML UDC PO SCH ×3 (05:47→21:57)
[2022-02-12 06:35] LABS: HEMATOCRIT. 30.8 % (36.0-48.0); HEMOGLOBIN. 9.8 g/dL (12.0-16.0); MEAN CORPUSCULAR HEMOGLOBIN 28.8 pg (28.0-32.0); MEAN CORPUSCULAR VOLUME 90.5 fL (81.0-99.0); MEAN PLATELET VOLUME 9.3 fl (7.4-10.4); PLATELET 153 x1000/uL (130-400); RED CELL DISTRIBUTION WIDTH 24.5 % (11.6-14.6)
[2022-02-12 08:00] VITALS: BP 150/90
[2022-02-12] MEDS: PANTOPRAZOLE 40MG DR TABLET PO SCH ×2 (08:43→21:57)
[2022-02-12] MEDS: FERROUS SULFATE 325MG TABLET PO SCH ×3 (08:43→16:35)
[2022-02-12] MEDS: ASCORBIC ACID 500 MG TABLET PO SCH (08:43)
[2022-02-12] MEDS: MEGESTROL ACETATE 400 MG/10 ML UDC PO SCH (08:43)
[2022-02-12] MEDS: DIPHENOXYLATE/ATROPINE 2.5/0.025MG TABLET PO PRN ×2 (08:43→14:46)
[2022-02-12] MEDS: MAGNESIUM OXIDE 400MG TABLET PO SCH (08:43)
[2022-02-12] MEDS: SOTALOL HCL 80MG TABLET PO SCH ×2 (08:44→21:59)
[2022-02-12] MEDS: MESALAMINE 400 MG CAPSULE.DR PO SCH ×3 (08:44→16:35)
[2022-02-12] MEDS: PREDNISONE 10MG TABLET PO SCH (08:44)
[2022-02-12] MEDS: MIDODRINE HCL 5MG TABLET PO SCH ×3 (08:45→16:40)
[2022-02-12] MEDS: NYSTATIN POWDER 15GM TOP SCH ×2 (08:47→21:00)
[2022-02-12] MEDS: AZATHIOPRINE 50MG TABLET PO SCH (09:00)
[2022-02-12 19:15] LABS: PLATELET ESTIMATE NORMAL
[2022-02-12 20:00] VITALS: BP 131/61
[2022-02-13] MEDS: LACTULOSE 20G/30ML UDC PO SCH ×3 (06:00→21:43)
[2022-02-13 06:35] LABS: HEMATOCRIT. 32.2 % (36.0-48.0); HEMOGLOBIN. 9.9 g/dL (12.0-16.0); MEAN CORPUSCULAR HEMOGLOBIN 28.2 pg (28.0-32.0); MEAN PLATELET VOLUME 8.9 fl (7.4-10.4); PLATELET 145 x1000/uL (130-400); RED CELL DISTRIBUTION WIDTH 24.7 % (11.6-14.6)
[2022-02-13 06:48] LABS: CHLORIDE 105 mEq/L (98-107)
[2022-02-13 08:00] VITALS: BP 101/61
[2022-02-13] MEDS: MEGESTROL ACETATE 400 MG/10 ML UDC PO SCH (08:40)
[2022-02-13] MEDS: PREDNISONE 10MG TABLET PO SCH (08:41)
[2022-02-13] MEDS: ERGOCALCIFEROL 50000UNITS CAPSULE PO SCH (08:42)
[2022-02-13] MEDS: SOTALOL HCL 80MG TABLET PO SCH ×2 (08:42→21:43)
[2022-02-13] MEDS: FERROUS SULFATE 325MG TABLET PO SCH ×3 (08:42→17:41)
[2022-02-13] MEDS: AZATHIOPRINE 50MG TABLET PO SCH (08:43)
[2022-02-13] MEDS: ASCORBIC ACID 500 MG TABLET PO SCH (08:43)
[2022-02-13] MEDS: PANTOPRAZOLE 40MG DR TABLET PO SCH ×2 (08:43→21:43)
[2022-02-13] MEDS: MAGNESIUM OXIDE 400MG TABLET PO SCH (08:43)
[2022-02-13] MEDS: MESALAMINE 400 MG CAPSULE.DR PO SCH ×3 (08:44→17:41)
[2022-02-13] MEDS: MIDODRINE HCL 5MG TABLET PO SCH ×3 (08:44→17:41)
[2022-02-13] MEDS: ACETAMINOPHEN 325MG TABLET PO PRN (08:45)
[2022-02-13] MEDS: NYSTATIN POWDER 15GM TOP SCH ×2 (08:45→21:42)
[2022-02-13 15:39] LABS: PLATELET ESTIMATE NORMAL
[2022-02-13 20:09] VITALS: BP 119/74
[2022-02-14] MEDS: LACTULOSE 20G/30ML UDC PO SCH ×2 (06:00→14:00)
[2022-02-14 06:11] LABS: HEMATOCRIT. 31.7 % (36.0-48.0); HEMOGLOBIN. 9.9 g/dL (12.0-16.0); MEAN CORPUSCULAR HEMOGLOBIN 28.1 pg (28.0-32.0); MEAN CORPUSCULAR VOLUME 89.6 fL (81.0-99.0); MEAN PLATELET VOLUME 9.1 fl (7.4-10.4); PLATELET 144 x1000/uL (130-400); RED BLOOD CELL COUNT 3.53 mill/uL (4.2-5.4)
[2022-02-14 06:22] LABS: CHLORIDE 104 mEq/L (98-107)
[2022-02-14 08:00] VITALS: BP 102/67
[2022-02-14] MEDS: SOTALOL HCL 80MG TABLET PO SCH (09:00)
[2022-02-14] MEDS ORDERED: PREDNISONE 10MG TABLET PO SCH (09:00)
[2022-02-14] MEDS ORDERED: PREDNISONE 20MG TABLET PO SCH (09:00)
[2022-02-14] MEDS: AZATHIOPRINE 50MG TABLET PO SCH (09:33)
[2022-02-14] MEDS: FERROUS SULFATE 325MG TABLET PO SCH ×2 (09:33→14:08)
[2022-02-14] MEDS: PANTOPRAZOLE 40MG DR TABLET PO SCH (09:34)
[2022-02-14] MEDS: MAGNESIUM OXIDE 400MG TABLET PO SCH (09:34)
[2022-02-14] MEDS: ASCORBIC ACID 500 MG TABLET PO SCH (09:38)
[2022-02-14] MEDS: MIDODRINE HCL 5MG TABLET PO SCH ×2 (09:38→14:09)
[2022-02-14] MEDS: MESALAMINE 400 MG CAPSULE.DR PO SCH ×2 (09:39→14:08)
[2022-02-14] MEDS: NYSTATIN POWDER 15GM TOP SCH (09:40)
[2022-02-14] MEDS: MEGESTROL ACETATE 400 MG/10 ML UDC PO SCH (09:40)
[2022-02-14 11:54] LABS: PLATELET ESTIMATE NORMAL
== END 2022-02-14 17:30 | disposition home health service (06) | DRG 535 ==
LOC: 6WST 19:45
PROVIDERS: ADMIT Physical Medicine & Rehabilitation Spinal Cord Injury Medicine; ATTEND Internal Medicine
DX: S72.141A Displaced intertrochanteric fracture of right femur, initial encounter for closed fracture (principal); E43 Unspecified severe protein-calorie malnutrition; G93.41 Metabolic encephalopathy; K50.111 Crohn's disease of large intestine with rectal bleeding; I48.19 Other persistent atrial fibrillation; N39.0 Urinary tract infection, site not specified; I85.10 Secondary esophageal varices without bleeding; W01.0XXA Fall on same level from slipping, tripping and stumbling without subsequent striking against object, initial encounter; Z79.01 Long term (current) use of anticoagulants; Z82.49 Family history of ischemic heart disease and other diseases of the circulatory system; Z86.73 Personal history of transient ischemic attack (TIA), and cerebral infarction without residual deficits; K74.60 Unspecified cirrhosis of liver; I27.21 Secondary pulmonary arterial hypertension; I10 Essential (primary) hypertension; I08.1 Rheumatic disorders of both mitral and tricuspid valves; F39 Unspecified mood [affective] disorder; F09 Unspecified mental disorder due to known physiological condition; E88.09 Other disorders of plasma-protein metabolism, not elsewhere classified; E87.6 Hypokalemia; D72.819 Decreased white blood cell count, unspecified; D64.9 Anemia, unspecified; I25.10 Atherosclerotic heart disease of native coronary artery without angina pectoris; I45.10 Unspecified right bundle-branch block; R26.9 Unspecified abnormalities of gait and mobility; E87.5 Hyperkalemia; R41.89 Other symptoms and signs involving cognitive functions and awareness; K29.70 Gastritis, unspecified, without bleeding; K31.89 Other diseases of stomach and duodenum; E55.9 Vitamin D deficiency, unspecified
CPT/HCPCS: 36415; 80048; 80053; 81003; 82140; 82270; 82306; 82607; 82728; 82746; 82962; 83540; 83550; 83735; 84132; 84134; 84443; 85014; 85018; 85025; 85044; 86850; 86900; 86920; 87426; 88305; 92523; 93005; 93970; 97110; 97112; 97116; 97162; 97166; 97530; 97535; C9113; J2250; J2704; J2920; J3420; J7500; J7512; A4315